=== PATIENT | male | born 1985 | race Caucasian/White ===

== ENCOUNTER 2017-04-18 12:53 | Emergency (ER) | payer OTHER ==
--- NOTE | 2017-04-18 14:23 | RAD ---
INDICATION: Left hip pain after a fall COMPARISON: CT abdomen pelvis dated July 03, 2015 and left hip radiograph dated October 06, 2014 TECHNIQUE: 3 views of the left hip were obtained. FINDINGS: There is bony irregularity overlying the left femoral head and neck which appears to be posterior to the femoral head when viewed in the lateral projection. The visualized bones are otherwise appropriately aligned and well corticated. No definite fracture or dislocation is identified. Partially visualized overlying the expected location of the inferior vena cava is a Cook select IVC filter. IMPRESSION: 1. No definite fracture or dislocation involving the left hip. There is chronic bony formation posterior to the femoral head that is similar in appearance to the October 06, 2014 radiograph. 2. Again seen is what appears to be a Cook select IVC filter. Please confirm continued clinical indication for this IVC filter in a 32-year-old patient. According to the FDA's February 19, 2014 Safety Communication titled, Removing Retrievable Inferior Vena Cava Filters: FDA Safety Communication, removal of IVC filters should be considered once there is no longer a threat of pulmonary embolism. https://www.fda.gov/medicaldevices/safety/alertsandnotices/nvd389449.htm
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
[2017-04-18 15:53] VITALS: BP 131/83
== END 2017-04-18 15:35 | disposition home or self-care (01) ==
LOC: ED 12:53
DX: M25.552 Pain in left hip (principal); W19.XXXA Unspecified fall, initial encounter; Y92.9 Unspecified place or not applicable; Z79.01 Long term (current) use of anticoagulants; Z88.2 Allergy status to sulfonamides
CPT/HCPCS: 99282

== ENCOUNTER 2017-04-22 10:21 | Emergency (ER) | payer OTHER ==
[2017-04-22] MEDS ORDERED: HYDROcodone/ACETAMIN 5-325 MG* 1 TAB PO ONE (11:18)
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
[2017-04-22 11:29] VITALS: BP 152/102
== END 2017-04-22 11:45 | disposition short-term general hospital (02) ==
LOC: UCEAST 10:21
DX: M25.559 Pain in unspecified hip (principal); S30.0XXD Contusion of lower back and pelvis, subsequent encounter; S70.00XD Contusion of unspecified hip, subsequent encounter; I82.401 Acute embolism and thrombosis of unspecified deep veins of right lower extremity; Z79.01 Long term (current) use of anticoagulants
CPT/HCPCS: 99213; G0463

== ENCOUNTER 2017-04-22 12:04 | Inpatient (IN) | payer OTHER ==
[2017-04-22 13:04] LABS: Comments Flag Yes; Hematocrit 33 % (42-52); Hemoglobin 10.8 g/dl (14.0-18.0); Mean Corpuscular HGB Conc 33 g/dl (31-36); Mean Corpuscular Hemoglobin 29 pg (27-31); Mean Corpuscular Volume 87 fL (80-94); Mean Platelet Volume 9 um3 (7.4-10.4); Red Blood Count 3.79 10^6/ul (4.0-5.4); Red Cell Distribution Width 14 % (10.5-15); White Blood Count 13.9 10^3/ul (3.5-10.8)
[2017-04-22 13:05] LABS: Add Diff/Slide Review? Slide Review Added
[2017-04-22 13:20] LABS: Albumin 4.1 g/dL (3.2-5.2); BUN/Creatinine Ratio 19.7 (8-20); Calcium 9.6 mg/dL (8.6-10.3); EGFR African American 179.9 (>60); EGFR Non-African American 139.9 (>60); Globulin 3.1 g/dL (2-4); Total Bilirubin 1.3 mg/dL (0.2-1.0); Total Protein 7.2 g/dL (6.4-8.9)
[2017-04-22] MEDS ORDERED: Morphine INJ* 4 MG/ML 1 ML SYRINGE IV ONE (13:49)
[2017-04-22] MEDS ORDERED: HYDROcodone/ACETAMIN 5-325 MG* 1 TAB PO ONE (14:06)
[2017-04-22] MEDS ORDERED: Acetaminophen TAB* 325 MG PO PRN (14:59)
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
[2017-04-22] MEDS: HYDROcodone/ACETAMIN 5-325 MG* 1 TAB PO PRN ×2 (19:20→21:56)
[2017-04-22] MEDS ORDERED: Metoprolol Tartrate TAB* 25 MG PO ONE (21:35)
[2017-04-22] MEDS: DOXYcycline CAP(*) 100 MG PO SCH (21:57)
[2017-04-22] MEDS: Rivaroxaban TAB(*) 15 MG PO SCH (22:14)
[2017-04-23] MEDS ORDERED: Iohexol 350* (CONTRAST) 500 ML MDV IV ONE (00:02)
[2017-04-23] MEDS: HYDROcodone/ACETAMIN 5-325 MG* 1 TAB PO PRN ×8 (01:00→23:20)
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
[2017-04-23] MEDS: DOXYcycline CAP(*) 100 MG PO SCH ×2 (09:05→20:45)
[2017-04-23] MEDS: Rivaroxaban TAB(*) 15 MG PO SCH ×3 (09:05→20:46)
[2017-04-23 10:55] LABS: Hematocrit 34 % (42-52); Mean Corpuscular HGB Conc 33 g/dl (31-36); Mean Corpuscular Hemoglobin 29 pg (27-31); Mean Corpuscular Volume 88 fL (80-94); Mean Platelet Volume 9 um3 (7.4-10.4); Red Blood Count 3.82 10^6/ul (4.0-5.4); Red Cell Distribution Width 14 % (10.5-15); White Blood Count 16.3 10^3/ul (3.5-10.8)
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
[2017-04-23] MEDS: Magnesium Hydroxide LIQ* 30 ML UDC PO PRN ×2 (15:35→21:55)
[2017-04-24] MEDS: HYDROcodone/ACETAMIN 5-325 MG* 1 TAB PO PRN ×5 (00:37→16:45)
[2017-04-24 07:16] LABS: Albumin 3.6 g/dL (3.2-5.2); BUN/Creatinine Ratio 25.4 (8-20); EGFR African American 189.8 (>60); EGFR Non-African American 147.6 (>60); Globulin 2.5 g/dL (2-4); Potassium 4.1 mmol/L (3.5-5.0); Total Bilirubin 1.3 mg/dL (0.2-1.0); Total Protein 6.1 g/dL (6.4-8.9)
[2017-04-24] MEDS: DOXYcycline CAP(*) 100 MG PO SCH (08:39)
[2017-04-24] MEDS: Rivaroxaban TAB(*) 15 MG PO SCH ×2 (08:40→11:20)
[2017-04-24 09:21] LABS: Urine Bilirubin Negative (Negative); Urine Glucose Negative (Negative); Urine Nitrite Negative (Negative)
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
[2017-04-24 11:44] LABS: Hematocrit 30 % (42-52); Hemoglobin 9.9 g/dl (14.0-18.0); Mean Corpuscular HGB Conc 33 g/dl (31-36); Mean Corpuscular Hemoglobin 29 pg (27-31); Mean Corpuscular Volume 87 fL (80-94); Mean Platelet Volume 8 um3 (7.4-10.4); Red Blood Count 3.47 10^6/ul (4.0-5.4); Red Cell Distribution Width 14 % (10.5-15); White Blood Count 11.3 10^3/ul (3.5-10.8)
[2017-04-24 17:36] VITALS: BP 159/85
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
--- NOTE | 2017-04-26 19:45 | RAD ---
INDICATION: Tachycardia and chest pain COMPARISON: CT of the chest October 19, 2016 TECHNIQUE: Varnish Thinner imaging only was acquired. FINDINGS: The planned pulmonary embolism protocol CT of the chest was canceled upon the patient's request. Varnish Thinner imaging only was acquired. This shows the lungs to be grossly clear and the AP view. IMPRESSION: The lungs are grossly clear on the AP view on the chief strategy officer image only.
== END 2017-04-24 17:30 | disposition home or self-care (01) | DRG 384 ==
LOC: ED 12:04 → MED 14:59 → OBSVTOIN 04-23 12:31
PROVIDERS: ADMIT Internal Medicine; ATTEND Internal Medicine
DX: S70.12XA Contusion of left thigh, initial encounter (principal); I82.411 Acute embolism and thrombosis of right femoral vein; A69.20 Lyme disease, unspecified; W10.9XXA Fall (on) (from) unspecified stairs and steps, initial encounter; D72.829 Elevated white blood cell count, unspecified; K59.00 Constipation, unspecified; Y92.009 Unspecified place in unspecified non-institutional (private) residence as the place of occurrence of the external cause; Z87.820 Personal history of traumatic brain injury; Z79.01 Long term (current) use of anticoagulants; Z79.899 Other long term (current) drug therapy; Z88.2 Allergy status to sulfonamides; Z82.49 Family history of ischemic heart disease and other diseases of the circulatory system; Z83.3 Family history of diabetes mellitus
CPT/HCPCS: 36415; 71275; 80053; 81003; 82272; 83605; 85025; 93005; A9270-GY; G0378; G8978-GP-CK; G8979-GP-CJ; J2270; Q9967

== ENCOUNTER 2017-07-08 11:06 | Emergency (ER) | payer OTHER ==
[2017-07-08 11:33] VITALS: BP 155/94
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
== END 2017-07-08 12:51 | disposition home or self-care (01) ==
LOC: UCEAST 11:06
DX: S00.511A Abrasion of lip, initial encounter (principal); W01.0XXA Fall on same level from slipping, tripping and stumbling without subsequent striking against object, initial encounter; Y93.01 Activity, walking, marching and hiking; Y92.480 Sidewalk as the place of occurrence of the external cause; Z87.820 Personal history of traumatic brain injury; Z79.01 Long term (current) use of anticoagulants; Z88.2 Allergy status to sulfonamides; F12.90 Cannabis use, unspecified, uncomplicated; Z72.0 Tobacco use
CPT/HCPCS: 70450; 72125; 99212; G0463

== ENCOUNTER 2017-11-11 22:21 | Emergency (ER) | payer OTHER ==
[2017-11-11] MEDS ORDERED: Ciprofloxacin TAB* 500 MG PO ONE (22:54)
--- OUTSIDE RECORDS SUMMARY | 2017-11-11 23:17 | XMS REPORT ---
:1985 External Reference #:[id number] Author Organization [facility] Address [address] [address] Phone [phone] Care Team Providers Name Role Phone Garcia Palomares III, MD Care Team Information Typists Supervisor Unavailable Garcia Palomares III, MD Primary Care Physician Unavailable Payers Type Date Identification Numbers Payment Provider Subscriber Commercial Effective: Policy Number: Damon Stern Luther 2013 [id number] Group Name: [id number] [address] PayID: [id number] [place] [address] Commercial Expires: 2013 Policy Number: [employer] Jayesh J Luther [id number] [facility] PayID: [id number] [address] [address] [place] [address] Problems Date Description Provider Status Onset: 03/20/2012 Traumatic brain injury Garcia Palomares M.D. Active Onset: 09/20/2013 Abnormal gait Garcia Palomares M.D. Active Family History Date Family Member(s) Problem(s) Comments General Multiple Sclerosis (MS) Father due to (+) MS () - age 57 Social History Type Date Description Comments Marital Status Single Lives With Family Occupation Student Cigarette Use Patient is a current cigarette smoker, smokes every day Cigars Patient is a current cigar smoker, smokes every day Pipe Patient is a current pipe smoker, smokes every day Smokeless Tobacco Never Used Smokeless Tobacco ETOH Use Occasionally consumes alcohol Recreational Drug Use occ marijuana Smoking Patient is a former smoker quit May 2016; about 1/2 ppd then, max 1ppd. Began age 17 Exercise Type/Frequency Exercises sporadically walks on occ Allergies, Adverse Reactions, Alerts Date Description Reaction Status Severity Comments 03/20/2012 Sulfa not sure - was an active Medications Medication Date Status Form Strength Qnty SIG Indications Ordering Provider Xarelto 05/24 Active Tablets 20mg 90tab 1 by mouth I82.401 Garcia Noriega /2016 s every day Wilver Palomares Ciprofloxacin 04/26 Hx Tablets 250mg 14tab one by noalonso Noriega HCL s twice daily for Marielle, - 7 days M.DKim 07/07 Hydrocodone-Ac 04/22 Hx Tablets 5-325mg 40tab 1-2 tabs up to Garcia Noriega etaminophen s 4 itmes a day Marielle - as needd Danish.Pedro 07/13 Xarelto 04/20 Hx Tablets 15mg 42tab 1 by mouth I82.401 Garcia Noriega s twice a day Macario Palomares M.DKim 05/24 Tramadol HCL 04/20 Hx Tablets 50mg 40tab 1-2 tablets M25.552 Garcia Noriega s every 6 hours Marielle, - as needed M.Pedro 07/14 Lovenox 04/14 Hx Solution 100mg/ml 30ml SQ bid Marilee Macario Sherwood M.D. 04/22 Doxycycline 04/07 Hx Capsules 100mg 28cap 1 by mouth L03.115 Garcia Noriega Hyclate s twice a day Macario Palomares M.D. 04/20 No Active 07/30 Hx Unknown Medications /2015 - 04/07 No Active 12/04 Hx Unknown Medications /2012 - 06/20 Lovenox Hx Solution 100mg/ml 60uni On Hold. 1 Garcia E. /0000 ts subcutaneously Marielle - q12h as M.DKim 12/04 Benefiber Hx Powder Unknown /0000 Clindamycin Hx Capsules 300mg 1 tabs by mouth Unknown HCL /0000 3 times a day - 10/24 Immunizations CPT Code Status Date Vaccine Lot # 60010 Given 05/31/2014 Tdap - Tetanus/Diptheria/Acellular Pertussis [id number] Given 01/29/2014 Meningococcal Conjugate Vaccine 11990 Given 01/29/2014 Meningococcal Conjugate Vaccine [id number] Given Unknown Tetanus And Diptheria (Td) For Adult Use Preservative Free [id number] Refused 07/07/2012 Fluzone Vaccine Vital Signs Date Vital Result Comment 11/01/2017 Height 66.5 inches 5'6.50" Weight 215.00 lb Heart Rate 68 /min BP Systolic 132 mmHg BP Diastolic 80 mmHg Respiratory Rate 18 /min Body Temperature 96.6 F BMI (Body Mass Index) 34.2 kg/m2 10/25/2017 Weight 215.00 lb Heart Rate 75 /min BP Systolic Sitting 132 mmHg BP Diastolic Sitting 82 mmHg Body Temperature 97.3 F O2 % BldC Oximetry 99 % 09/09/2017 Weight 191.25 lb Heart Rate 52 /min BP Systolic 142 mmHg BP Diastolic 82 mmHg O2 % BldC Oximetry 93 % 07/15/2017 Height 66.5 inches 5'6.50" Weight 199.25 lb Heart Rate 74 /min BP Systolic Sitting 154 mmHg BP Diastolic Sitting 90 mmHg Body Temperature 96.4 F O2 % BldC Oximetry 98 % BMI (Body Mass Index) 31.7 kg/m2 05/04/2017 Weight 203.00 lb Heart Rate 77 /min BP Systolic 152 mmHg BP Diastolic 80 mmHg Body Temperature 97.0 F O2 % BldC Oximetry 99 % 04/20/2017 Heart Rate 86 /min BP Systolic 136 mmHg BP Diastolic 78 mmHg Body Temperature 97.9 F O2 % BldC Oximetry 98 % 04/07/2017 Weight 211.00 lb Heart Rate 74 /min BP Systolic 128 mmHg BP Diastolic 62 mmHg Body Temperature 98.5 F O2 % BldC Oximetry 99 % 03/01/2017 Height 66.5 inches 5'6.50" Weight 211.50 lb Heart Rate 63 /min BP Systolic 130 mmHg BP Diastolic 80 mmHg Body Temperature 95.9 F O2 % BldC Oximetry 99 % BMI (Body Mass Index) 33.6 kg/m2 02/04/2017 Height 66.5 inches 5'6.50" Weight 210.00 lb Heart Rate 72 /min BP Systolic 126 mmHg BP Diastolic 84 mmHg Respiratory Rate 16 /min Body Temperature 97.9 F BMI (Body Mass Index) 33.4 kg/m2 11/15/2016 Height 66.5 inches 5'6.50" Weight 206.50 lb Heart Rate 88 /min BP Systolic 126 mmHg BP Diastolic 70 mmHg Body Temperature 96.5 F O2 % BldC Oximetry 98 % BMI (Body Mass Index) 32.8 kg/m2 10/26/2016 Height 66.5 inches 5'6.50" Weight 200.00 lb Heart Rate 68 /min BP Systolic 136 mmHg BP Diastolic 80 mmHg Respiratory Rate 18 /min Body Temperature 96.5 F BMI (Body Mass Index) 31.8 kg/m2 10/05/2016 Weight 205.00 lb Heart Rate 85 /min BP Systolic Sitting 154 mmHg BP Diastolic Sitting 88 mmHg Body Temperature 96.5 F O2 % BldC Oximetry 98 % 07/30/2016 Height 66.5 inches 5'6.50" Weight 190.00 lb Heart Rate 72 /min BP Systolic 138 mmHg BP Diastolic 82 mmHg Respiratory Rate 16 /min Body Temperature 99.1 F BMI (Body Mass Index) 30.2 kg/m2 10/02/2015 Weight 188.00 lb Heart Rate 85 /min BP Systolic Sitting 134 mmHg BP Diastolic Sitting 80 mmHg Body Temperature 97.8 F 06/20/2015 Weight 190.00 lb Heart Rate 80 /min BP Systolic Sitting 140 mmHg BP Diastolic Sitting 84 mmHg Body Temperature 98.4 F O2 % BldC Oximetry 98 % 05/21/2015 Weight 193.25 lb Heart Rate 62 /min BP Systolic Sitting 124 mmHg BP Diastolic Sitting 72 mmHg Body Temperature 96.4 F O2 % BldC Oximetry 95 % 01/15/2015 Weight 182.50 lb Heart Rate 55 /min BP Systolic Sitting 130 mmHg BP Diastolic Sitting 80 mmHg Body Temperature 97.9 F O2 % BldC Oximetry 98 % 01/14/2015 Weight 200.00 lb Heart Rate 78 /min BP Systolic Sitting 130 mmHg BP Diastolic Sitting 88 mmHg 10/08/2014 Weight 193.00 lb Heart Rate 80 /min BP Systolic Sitting 130 mmHg BP Diastolic Sitting 70 mmHg Body Temperature 97.5 F 05/31/2014 Weight 196.00 lb BP Systolic Sitting 130 mmHg BP Diastolic Sitting 86 mmHg Body Temperature 97.0 F 09/20/2013 Height 66 inches 5'6" Weight 229.50 lb Heart Rate 78 /min BP Systolic 134 mmHg BP Diastolic 82 mmHg BMI (Body Mass Index) 37.0 kg/m2 06/06/2013 Weight 218.75 lb Heart Rate 96 /min BP Systolic Sitting 144 mmHg BP Diastolic Sitting 82 mmHg 12/04/2012 Height 66.5 inches 5'6.50" Weight 226.00 lb Heart Rate 80 /min BP Systolic Sitting 130 mmHg BP Diastolic Sitting 80 mmHg BMI (Body Mass Index) 35.9 kg/m2 10/24/2012 Height 66.5 inches 5'6.50" Weight 229.00 lb Heart Rate 80 /min BP Systolic Sitting 120 mmHg BP Diastolic Sitting 64 mmHg BMI (Body Mass Index) 36.4 kg/m2 08/03/2012 Height 66.25 inches 5'6.25" Weight 234.00 lb Heart Rate 96 /min BP Systolic Sitting 136 mmHg BP Diastolic Sitting 84 mmHg BMI (Body Mass Index) 37.5 kg/m2 07/20/2012 Height 66.5 inches 5'6.50" Weight 230.00 lb Heart Rate 108 /min BP Systolic Sitting 138 mmHg BP Diastolic Sitting 86 mmHg BMI (Body Mass Index) 36.6 kg/m2 07/07/2012 Height 66.5 inches 5'6.50" Weight 230.00 lb Heart Rate 72 /min BP Systolic Sitting 158 mmHg BP Diastolic Sitting 98 mmHg BMI (Body Mass Index) 36.6 kg/m2 03/20/2012 Height 66.5 inches 5'6.50" Weight 236.50 lb Heart Rate 84 /min BP Systolic Sitting 128 mmHg BP Diastolic Sitting 80 mmHg BMI (Body Mass Index) 37.6 kg/m2 Results Test Date Test Result H/L Range Note CBC Auto Diff 10/26/2017 White Blood Count 7.1 10^3/uL 3.5-10.8 Red Blood Count 4.78 10^6/uL 4.0-5.4 Hemoglobin 13.6 g/dL Low 14.0-18.0 Hematocrit 41 % Low 42-52 Mean Corpuscular Volume 85 fL 80-94 Mean Corpuscular Hemoglobin 28 pg 27-31 Mean Corpuscular HGB Conc 34 g/dL 31-36 Red Cell Distribution Width 16 % High 10.5-15 Platelet Count 238 10^3/uL 150-450 Mean Platelet Volume 8 um3 7.4-10.4 Abs Neutrophils 5.3 10^3/uL 1.5-7.7 Abs Lymphocytes 0.8 10^3/uL Low 1.0-4.8 Abs Monocytes 0.7 10^3/uL 0-0.8 Abs Eosinophils 0.1 10^3/uL 0-0.6 Abs Basophils 0.1 10^3/uL 0-0.2 Abs Nucleated RBC 0 10^3/uL Granulocyte % 75.7 % 38-83 Lymphocyte % 11.8 % Low 25-47 Monocyte % 10.3 % High 1-9 Eosinophil % 1.4 % 0-6 Basophil % 0.8 % 0-2 Nucleated Red Blood Cells % 0 CBC Auto Diff 05/04/2017 White Blood Count 8.0 10^3/uL 3.5-10.8 Red Blood Count 3.83 10^6/uL Low 4.0-5.4 Hemoglobin 11.1 g/dL Low 14.0-18.0 Hematocrit 34 % Low 42-52 Mean Corpuscular Volume 89 fL 80-94 Mean Corpuscular Hemoglobin 29 pg 27-31 Mean Corpuscular HGB Conc 33 g/dL 31-36 Red Cell Distribution Width 15 % 10.5-15 Platelet Count 760 10^3/uL High 150-450 Mean Platelet Volume 8 um3 7.4-10.4 Abs Neutrophils 5.3 10^3/uL 1.5-7.7 Abs Lymphocytes 1.8 10^3/uL 1.0-4.8 Abs Monocytes 0.7 10^3/uL 0-0.8 Abs Eosinophils 0.2 10^3/uL 0-0.6 Abs Basophils 0.1 10^3/uL 0-0.2 Abs Nucleated RBC 0 10^3/uL Granulocyte % 66.7 % 38-83 Lymphocyte % 22.0 % Low 25-47 Monocyte % 8.5 % 1-9 Eosinophil % 1.9 % 0-6 Basophil % 0.9 % 0-2 Nucleated Red Blood Cells % 0 Liver Function Panel 05/04/2017 Total Protein 7.1 g/dL 6.4-8.9 Albumin 4.1 g/dL 3.2-5.2 Globulin 3.0 g/dL 2-4 Albumin/Globulin Ratio 1.4 1-3 Total Bilirubin 1.40 mg/dL High 0.2-1.0 Direct Bilirubin 0.20 mg/dL High 0.03-0.18 Indirect Bilirubin 1.2 mg/dL High 0.3-1.0 Alkaline Phosphatase 79 U/L 34-104 Alt 34 U/L 7-52 Ast 22 U/L 13-39 Urine Culture And Sensitivities 04/27/2017 Urine Culture SEE RESULT BELOW 1, 2 Urinalysis Profile 04/27/2017 Urine Color Yellow 1 Urine Appearance Clear 1 Urine Specific [place] 1.011 1.010-1.030 1 Urine pH 6.0 5-9 1 Urine Urobilinogen Negative Negative 1 Urine Ketones Negative Negative 1 Urine Protein Negative Negative 1 Urine Leukocytes Negative Negative 1 Urine Blood Negative Negative 1 Urine Nitrite Negative Negative 1 Urine Bilirubin Negative Negative 1 Urine Glucose Negative Negative 1 CBC Auto Diff 04/22/2017 White Blood Count 13.9 10^3/uL High 3.5-10.8 Red Blood Count 3.79 10^6/uL Low 4.0-5.4 Hemoglobin 10.8 g/dL Low 14.0-18.0 Hematocrit 33 % Low 42-52 Mean Corpuscular Volume 87 fL 80-94 Mean Corpuscular Hemoglobin 29 pg 27-31 Mean Corpuscular HGB Conc 33 g/dL 31-36 Red Cell Distribution Width 14 % 10.5-15 Platelet Count 252 10^3/uL 150-450 Mean Platelet Volume 9 um3 7.4-10.4 Abs Neutrophils 10.1 10^3/uL High 1.5-7.7 Abs Lymphocytes 1.9 10^3/uL 1.0-4.8 Abs Monocytes 1.7 10^3/uL High 0-0.8 Abs Eosinophils 0.1 10^3/uL 0-0.6 Abs Basophils 0.1 10^3/uL 0-0.2 Abs Nucleated RBC 0 10^3/uL Granulocyte % 73.0 % 38-83 Lymphocyte % 13.6 % Low 25-47 Monocyte % 12.2 % High 1-9 Eosinophil % 0.6 % 0-6 Basophil % 0.6 % 0-2 Nucleated Red Blood Cells % 0 Laboratory test finding 04/22/2017 Lactic Acid 0.7 mmol/L 0.5-2.0 3 Comp Metabolic Panel 04/22/2017 Sodium 134 mmol/L 133-145 Potassium 4.0 mmol/L 3.5-5.0 Chloride 100 mmol/L Low 101-111 Co2 Carbon Dioxide 27 mmol/L 22-32 Anion Gap 7 mmol/L 2-11 Glucose 95 mg/dL 70-100 Blood Urea Nitrogen 13 mg/dL 6-24 Creatinine 0.66 mg/dL Low 0.67-1.17 BUN/Creatinine Ratio 19.7 8-20 Calcium 9.6 mg/dL 8.6-10.3 Total Protein 7.2 g/dL 6.4-8.9 Albumin 4.1 g/dL 3.2-5.2 Globulin 3.1 g/dL 2-4 Albumin/Globulin Ratio 1.3 1-3 Total Bilirubin 1.30 mg/dL High 0.2-1.0 Alkaline Phosphatase 61 U/L 34-104 Alt 115 U/L High 7-52 Ast 142 U/L High 13-39 Egfr Non- 139.9 >60 Egfr 179.9 >60 4 CBC Auto Diff 04/14/2017 White Blood Count 5.9 10^3/uL 3.5-10.8 Red Blood Count 4.65 10^6/uL 4.0-5.4 Hemoglobin 13.4 g/dL Low 14.0-18.0 Hematocrit 42 % 42-52 Mean Corpuscular Volume 90 fL 80-94 Mean Corpuscular Hemoglobin 29 pg 27-31 Mean Corpuscular HGB Conc 32 g/dL 31-36 Red Cell Distribution Width 14 % 10.5-15 Platelet Count 224 10^3/uL 150-450 Mean Platelet Volume 9 um3 7.4-10.4 Abs Neutrophils 3.2 10^3/uL 1.5-7.7 Abs Lymphocytes 2.0 10^3/uL 1.0-4.8 Abs Monocytes 0.6 10^3/uL 0-0.8 Abs Eosinophils 0.1 10^3/uL 0-0.6 Abs Basophils 0.1 10^3/uL 0-0.2 Abs Nucleated RBC 0.01 10^3/uL Granulocyte % 53.7 % 38-83 Lymphocyte % 33.7 % 25-47 Monocyte % 10.2 % High 1-9 Eosinophil % 1.5 % 0-6 Basophil % 0.9 % 0-2 Nucleated Red Blood Cells % 0.2 Laboratory test finding 04/14/2017 Erythrocyte Sed Rate 7 mm/Hr 0-14 Lyme Disease Serology Positive Negative 5 C Reactive Protein 1.54 mg/L < 5.00 6 Lyme Western Blot 04/14/2017 Lyme Disease IgG Ab WB Negative Negative Lyme Disease IgG Bands Present No bands detecte <SEE NOTE> kDa 7 Lyme Disease IgM Ab WB Negative Negative Lyme Disease IgM Bands Present No bands detecte <SEE NOTE> kDa 8 Lyme Disease Interpretation See Comment 9 Laboratory test finding 10/27/2015 Point of Care Glucose 89 mg/dL 74-106 10 Laboratory test finding 08/01/2015 Point of Care Glucose 72 mg/dL Low 74- 106 11 CBC Auto Diff 10/15/2014 White Blood Count 6.9 10^3/uL 4.8-10.8 12 Red Blood Count 3.81 10^6/uL Low 4.0-5.4 12 Hemoglobin 10.9 g/dL Low 14.0-18.0 12 Hematocrit 34 % Low 42-52 12 Mean Corpuscular Volume 88 fL 80-94 12 Mean Corpuscular Hemoglobin 29 pg 27-31 12 Mean Corpuscular HGB Conc 33 g/dL 31-36 12 Red Cell Distribution Width 16 % High 10.5-15 12 Platelet Count 310 10^3/uL 150-450 12 Mean Platelet Volume 9 um3 7.4-10.4 12 Abs Neutrophils 4.7 10^3/uL 1.5-7.7 12 Abs Lymphocytes 1.4 10^3/uL 1.0-4.8 12 Abs Monocytes 0.6 10^3/uL 0-0.8 12 Abs Eosinophils 0.1 10^3/uL 0-0.6 12 Abs Basophils 0.1 10^3/uL 0-0.2 12 Abs Nucleated RBC 0 10^3/uL 12 Granulocyte % 68.1 % 38-83 12 Lymphocyte % 20.7 % Low 25-47 12 Monocyte % 8.3 % 1-9 12 Eosinophil % 2.1 % 0-6 12 Basophil % 0.8 % 0-2 12 Nucleated Red Blood Cells % 0 12 Lipid Profile (Trig/Chol/HDL) 10/15/2014 Triglycerides 70 mg/dL 12, 13 Cholesterol 144 mg/dL 12, 14 HDL Cholesterol 42.7 mg/dL 12, 15 LDL Cholesterol 87 mg/dL 12, 16 Comp Metabolic Panel 10/06/2014 Sodium 140 mmol/L 133-145 Potassium 4.2 mmol/L 3.5-5.0 Chloride 107 mmol/L 101-111 Co2 Carbon Dioxide 29 mmol/L 22-32 Anion Gap 4 mmol/L 2-11 Glucose 82 mg/dL 70-100 Blood Urea Nitrogen 19 mg/dL 6-24 Creatinine 0.75 mg/dL 0.67-1.17 BUN/Creatinine Ratio 25.3 High 8-20 Calcium 9.5 mg/dL 8.6-10.3 Total Protein 7.0 g/dL 6.4-8.9 Albumin 4.1 g/dL 3.2-5.2 Globulin 2.9 g/dL 2-4 Albumin/Globulin Ratio 1.4 1-3 Total Bilirubin 1.00 mg/dL 0.2-1.0 Alkaline Phosphatase 47 U/L 34-104 Alt 10 U/L 7-52 Ast 15 U/L 13-39 Egfr Non- 123.1 >60 Egfr 158.3 >60 17 Laboratory test finding 10/06/2014 Activated Partial 37.2 seconds High 24.0-36.1 Thrombo Time Inr/Protime 10/06/2014 Inr 0.97 0.85-1.06 CBC Auto Diff 10/06/2014 White Blood Count 8.2 10^3/uL 4.8-10.8 Red Blood Count 3.76 10^6/uL Low 4.0-5.4 Hemoglobin 10.8 g/dL Low 14.0-18.0 Hematocrit 33 % Low 42-52 Mean Corpuscular Volume 87 fL 80-94 Mean Corpuscular Hemoglobin 29 pg 27-31 Mean Corpuscular HGB Conc 33 g/dL 31-36 Red Cell Distribution Width 15 % 10.5-15 Platelet Count 357 10^3/uL 150-450 Mean Platelet Volume 8 um3 7.4-10.4 Abs Neutrophils 6.3 10^3/uL 1.5-7.7 Abs Lymphocytes 1.3 10^3/uL 1.0-4.8 Abs Monocytes 0.5 10^3/uL 0-0.8 Abs Eosinophils 0.1 10^3/uL 0-0.6 Abs Basophils 0.1 10^3/uL 0-0.2 Abs Nucleated RBC 0 10^3/uL Granulocyte % 76.5 % 38-83 Lymphocyte % 15.7 % Low 25-47 Monocyte % 6.2 % 1-9 Eosinophil % 1.0 % 0-6 Basophil % 0.6 % 0-2 Nucleated Red Blood Cells % 0 Laboratory test 10/20/2012 D Dimer Quantitative < 200 ng/mL Less Than 18 finding 230 International 07/14/2012 Inr 0.92 0.88-1.13 19 Normalized Ratio Protime 10.9 SEC 10.3-13.5 20 Basic Metabolic Panel 07/14/2012 Sodium 141 mmol/L 135-145 Potassium 5.0 mmol/L 3.5-5.0 Chloride 108 mmol/L 101-111 Co2 (Carbon Dioxide) 24.0 mmol/L 22-32 Anion Gap 9.0 mmol/L 2-11 21 Glucose 94 mg/dL 70-100 BUN 14 mg/dL 6-24 Creatinine 0.8 mg/dL 0.50-1.40 One Over Creatinine 1.25 BUN/Creatinine Ratio 17.5 8-20 Calcium 9.5 mg/dL 8.1-9.9 eGFR Non- 116.0 > 60 eGFR 149.1 > 60 22 1 [id number] 2 SEE RESULT BELOW Name: JAYESH LOVE : [address]: Marilee Sherwood MD Acct: [id number] Unit: [id number] AGE: 32 Location: [facility] Re04/27/17 SEX: M Status: REG REF SPEC: [id number] HUNG: 04/27/17-[address]: Marilee Sherwood MD REQ: [id number] RECD: 07/ STATUS: COMP OTHR DR: Garcia Palomares III, MD _ SOURCE: URINE [facility]: ORDERED: Urine Culture COMMENTS: [id number] Urine Source: Random Procedure Result Reported Site Urine Culture Final 04/28/17- 1331 ML No Growth (<1,000 CFU/mL) * ML - MAIN LAB ([facility]) . END OF REPORT * ML=Testing performed at Main Lab DEPARTMENT OF PATHOLOGY, [address] [place] [address] Eric Matthews M.D. Director [facility] # [id number] 3 [facility] Severe Sepsis and Septic Shock Management Bundle Measure requires all lactic acids initially measuring >2.0 mmol/L be repeated. 4 Because ethnic data is not always readily available, this report includes an eGFR for both -Americans and non- Americans. The National Kidney Disease Education Program (NKDEP) does not endorse the use of the MDRD equation for patients that are not between the ages of 18 and 70, are , have extremes of body size, muscle mass, or nutritional status, or are non- or non-. According to the National Kidney Foundation, irrespective of diagnosis, the stage of the disease is based on the level of kidney function: Stage Description GFR(mL/min/1.73 m(2)) 1 Kidney damage with normal or decreased GFR 90 2 Kidney damage with mild decrease in GFR 60-89 3 Moderate decrease in GFR 30-59 4 Severe decrease in GFR 15-29 5 Kidney failure <15 (or dialysis) 5 Not diagnostic. Supplemental testing ordered by reflex. Test Performed by: [place] [address] 6 Acute inflammation: >10.00 7 No bands detected 8 No bands detected 9 Specific serologic response to B. burgdorferi infection is not detected, but cannot rule out early infection during which low or undetectable antibody levels to B. burgdorferi may be present. If clinically indicated, a new serum specimen should be submitted in 7-14 days. ADDITIONAL INFORMATION CDC criteria require >=5 bands for IgG or >=2 bands for IgM for the Immunoblot to be considered positive. Bands (e.g.,p41) may be detected in patients without Lyme disease, and patterns not meeting the CDC criteria should be interpreted with caution. Immunoblot should be ordered only on specimens that are positive or equivocal by a FDA-licensed Lyme disease antibody screening test (e.g., EIA). Test Performed by: [address] [address] 10 Tavern Operator: [id number] ZAVALA 11 Tavern Operator: [id number] ZAVALA 12 PT IS FASTING 13 Desirable <150 Borderline high 150-199 High 200-499 Very High >500 14 Desirable <200 Borderline high 200-239 High >239 15 Low <40 Desirable: 40-60 High: >60 16 Desirable <100 Near Optimal 100-129 Borderline high 130-159 High 160-189 Very High >189 17 Because ethnic data is not always readily available, this report includes an eGFR for both -Americans and non- Americans. The National Kidney Disease Education Program (NKDEP) does not endorse the use of the MDRD equation for patients that are not between the ages of 18 and 70, are , have extremes of body size, muscle mass, or nutritional status, or are non- or non-. According to the National Kidney Foundation, irrespective of diagnosis, the stage of the disease is based on the level of kidney function: Stage Description GFR(mL/min/1.73 m(2)) 1 Kidney damage with normal or decreased GFR 90 2 Kidney damage with mild decrease in GFR 60-89 3 Moderate decrease in GFR 30-59 4 Severe decrease in GFR 15-29 5 Kidney failure <15 (or dialysis) 18 Please note: The following may produce a false positive D Dimer test: - Rheumatoid factor greater than 60 IU/ml - Plasma hemoglobin greater than 0.05 gm/dl - Bilirubin greater than 50 mg/dl - Lipids greater than 1000 mg/dl - FDP greater than 20 ug/ml 19 Recommended INR for Patients on Oral Anticoagulants Prophylaxis 2.0 - 3.0 Treatment of thrombosis 2.0 - 3.0 Prevention of embolism 2.0 - 3.0 Prevention of embolism from prosthetic heart valves 2.5 - 3.5 20 DIAGNOSIS,TREATMENT,AND THERAPY MUST BE BASED ON THE INR VALUE ALONE. 21 Anion gap measurement may be of limited value in the presence of any alkalosis, especially in a combined acid base disorder. . 22 Because ethnic data is not always readily available, this report includes an eGFR for both -Americans and non- Americans. The National Kidney Disease Education Program (NKDEP) does not endorse the use of the MDRD equation for patients that are not between the ages of 18 and 70, are , have extremes of body size, muscle mass, or nutritional status, or are non- or non-. According to the National Kidney Foundation, irrespective of diagnosis, the stage of the disease is based on the level of kidney function: Stage Description GFR(mL/min/1.73 m(2)) 1 Kidney damage with normal or decreased GFR 90 2 Kidney damage with mild decrease in GFR 60-89 3 Moderate decrease in GFR 30-59 4 Severe decrease in GFR 15-29 5 Kidney failure <15 (or dialysis) Procedures Date CPT Code Description Status 04/22/2017 19135 EKG, Interpretation Only Completed 01/14/2015 04584 Remove Guy Marquez Completed Encounters Type Date Location Provider CPT E/M Dx Office Visit 10/25/2017 [facility] Internal Garcia Palomares, 27815 K62.5 11:40a Alina Driver M.D. Office Visit 09/09/2017 [facility] Internal Garcia Palomares, 28975 M79.671 10:20a Alina Taylor M.D. Office Visit 07/15/2017 [facility] Internal Garcia Palomares, 15958 S01.511D 10:40a Alina Driver M.D. Office Visit 05/04/2017 [facility] Internal Garcia Palomares, 78017 M25.552 10:00a Alina Driver M.D. I82.401 A69.20 R94.5 Office Visit 04/24/2017 9:44a [facility] Shaina Gomez, 03760 T14.8 Assoc, [facility] I82.401 A69.20 Office Visit 04/23/2017 9:43a [facility] Shaina Gomez, 31304 T14.8 Assoc, [facility] I82.401 A69.20 Office Visit 04/22/2017 9:43a [facility] Shaina Gomez, 55513 T14.8 Assoc, [facility] I82.401 A69.20 Office Visit 04/20/2017 10:00a [facility] Internal Medicine Garcia Palomares, 26183 I82.401 - Neisha Pettit M25.552 Office Visit 04/07/2017 11:40a [facility] Internal Medicine Garcia Palomares, 03355 L03.115 - Neisha Pettit R60.0 Office Visit 03/01/2017 1:40p [facility] Internal Medicine Garcia Palomares, 53444 M54.9 - Neisha Pettit Office Visit 02/04/2017 1:15p [facility], 78969 K43.2 [facility] Office Visit 11/15/2016 3:40p [facility] Internal Medicine Garcia Palomares, 63061 Z87.820 - Neisha Pettit R26.89 Office Visit 10/26/2016 10:00a [facility], 17236 R91.8 Blanca Pettit Office Visit 10/05/2016 9:40a [facility] Internal Medicine - Garcia Palomares, 30761 J06.9 Neisha Pettit Office Visit 07/30/2016 4:00p [facility], 20842 K43.2 [facility] Office Visit 10/02/2015 1:20p [facility] Internal Medicine - Garcia Palomares, 42282 R91.8 Brandon Pettit Z87.820 Office Visit 06/20/2015 3:00p [facility] Internal Medicine Garcia Palomares, 48175 781.2 - Brandon Pettit V15.52 719.47 553.20 Office Visit 05/21/2015 2:00p [facility] Internal Medicine Garcia Palomares, 17010 553.20 - Brandon Pettit Office Visit 01/15/2015 2:40p [facility] Internal Medicine Garcia Palomares, 22053 V15.52 - Brandon Pettit 781.99 Office Visit 10/08/2014 4:00p [facility] Internal Medicine Garcia Palomares, 09139 924.00 - Brandon Pettit 285.9 V77.91 Office Visit 05/31/2014 11:40a [facility] Internal Medicine Garcia Palomares, 69725 781.2 - Brandon Pettit V06.1 Office Visit 09/20/2013 1:40p [facility] Internal Medicine Garcia Palomares, 16816 V70.0 - Brandon Pettit 781.2 V77.91 V77.1 Office Visit 06/06/2013 3:20p [facility] - Garcia Palomares, 97779 813.90 Brandon Pettit Office Visit 12/04/2012 1:40p [facility] - Garcia Palomares, 43017 V58.32 Brandon Pettit Office Visit 10/24/2012 9:40a [facility] - Garcia Palomares, 34917 453.42 Brandon Pettit Office Visit 08/03/2012 1:40p [facility] Garcia Palomares, 69640 922.31 Brandon Pettit Office Visit 07/31/2012 10:36a [facility], Candelario Devine M.D. 17868 568.81 Hospitalists 453.9 Office Visit 07/30/2012 10:35a [facility], Candelario Devine M.D. 55494 453.9 Hospitalists 568.81 Office Visit 07/20/2012 1:20p [facility] Garcia Palomares, 01684 453.42 - Brandon Pettit Office Visit 07/07/2012 4:00p [facility] Doris Wilde, 44853 719.46 - Brandon N.PKim V77.1 V77.91 278.00 Office Visit 03/20/2012 3:00p [facility] Garcia Palomares, 87980 V70.0 - Brandon Pettit V15.52 Plan of Care Future Appointment(s):02/01/2018 1:30 pm - Andi Peoples MD at [facility]11/01/2017 - Marlo Camacho M.D.R91.1 Solitary pulmonary noduleFollow up:As needed
--- OUTSIDE RECORDS SUMMARY | 2017-11-11 23:18 | XMS REPORT ---
:1985 External Reference #:[id number] Author Organization [facility] Address [address] [address] Phone [phone] Care Team Providers Name Role Phone Garcia Palomares III, MD Care Team Information Audio/Visual Manager Unavailable Garcia Palomares III, MD Primary Care Physician Unavailable Payers Type Date Identification Numbers Payment Provider Subscriber Commercial Effective: Policy Number: Damon Stern Lorida 2013 [id number] Group Name: [id number] [address] PayID: [id number] [place] [address] Commercial Expires: 2013 Policy Number: Total Care/De Souza MNG Jayesh J Lorida [id number] [facility] PayID: [id number] [address] [address] [place] [address] Problems Date Description Provider Status Onset: 03/20/2012 [...] Noriega s twice a day Macario Palomares M.DiKm 05/24 Tramadol HCL 04/20 Hx Tablets 50mg [...] CPT Code Status Date Vaccine Lot # 12521 Given 05/31/2014 Tdap - Tetanus/Diptheria/Acellular Pertussis [id number] 08275 Given 01/29/2014 Meningococcal Conjugate Vaccine 04754 Given 01/29/2014 Meningococcal Conjugate Vaccine [id number] 88765 Given Unknown Tetanus And Diptheria (Td) For Adult Use Preservative Free [id number] Refused 07/07/2012 Fluzone Vaccine Vital Signs Date Vital Result Comment 10/25/2017 Weight 215.00 lb Heart Rate 75 [...] Result H/L Range Note CBC Auto Diff 05/04/2017 White Blood Count [...] 1 Urine Appearance Clear 1 Urine Specific Pinola 1.011 1.010-1.030 1 Urine pH 6.0 5-9 [...] Dimer Quantitative < 200 ng/mL Less Than 230 18 finding Basic Metabolic 07/14/2012 Sodium 141 mmol/L 135-145 Panel Potassium 5.0 mmol/L 3.5-5.0 Chloride 108 mmol/L 101-111 Co2 (Carbon Dioxide) 24.0 mmol/L 22-32 Anion Gap 9.0 mmol/L 2-11 19 Glucose 94 mg/dL 70-100 BUN 14 mg/dL 6-24 Creatinine 0.8 mg/dL 0.50-1.40 One Over Creatinine 1.25 BUN/Creatinine Ratio 17.5 8-20 Calcium 9.5 mg/dL 8.1-9.9 eGFR Non- 116.0 > 60 eGFR 149.1 > 60 20 International Normalized Ratio 07/14/2012 Inr 0.92 0.88-1.13 21 Protime 10.9 SEC 10.3-13.5 22 1 [id number] 2 SEE RESULT BELOW Name: JAYESH LOVE : [address]: Marilee Sherwood MD Acct: [id number] Unit: [id number] AGE: 32 Location: [facility] Re04/27/17 SEX: M Status: REG REF SPEC: [id number] HUNG: 04/27/[address] [facility] [address]: Marilee Sherwood MD REQ: [id number] RECD: 04/27/17 STATUS: JASON RAJAN DR: Garcia Palomares III, MD _ SOURCE: URINE SPDESC: ORDERED: Urine Culture COMMENTS: [id number] Urine Source: Random Procedure Result Reported Site Urine Culture Final 04/28/17- 1331 ML No Growth (<1,000 CFU/mL) * ML - MAIN LAB ([facility]) . END OF REPORT * ML=Testing performed at Main Lab DEPARTMENT OF PATHOLOGY, [address] [place] [address] Eric Matthews M.D. Director [facility] # [id number] 3 [facility] Severe Sepsis and Septic Shock Management [...] testing ordered by reflex. Test Performed by: [address] [address] 6 Acute inflammation: >10.00 7 No bands [...] screening test (e.g., EIA). Test Performed by: [address] [address] 10 Finishing Range Feeder: TIMI ZAVALA 11 Finishing Range Feeder: TIMI ZAVALA 12 PT IS FASTING 13 Desirable [...] - FDP greater than 20 ug/ml 19 Anion gap measurement may be of limited value in the presence of any alkalosis, especially in a combined acid base disorder. . 20 Because ethnic data is not always readily [...] 15-29 5 Kidney failure <15 (or dialysis) 21 Recommended INR for Patients on Oral Anticoagulants Prophylaxis 2.0 - 3.0 Treatment of thrombosis 2.0 - 3.0 Prevention of embolism 2.0 - 3.0 Prevention of embolism from prosthetic heart valves 2.5 - 3.5 22 DIAGNOSIS,TREATMENT,AND THERAPY MUST BE BASED ON THE INR VALUE ALONE. Procedures Date CPT Code Description Status 04/22/2017 04597 EKG, Interpretation Only Completed 01/14/2015 81570 Remove Impacted Cerumen Completed Encounters Type Date Location Provider CPT E/M Dx Office Visit 09/09/2017 [facility] Internal Garcia Palomares, 86371 M79.671 10:20a Alina Taylor M.D. Office Visit 07/15/2017 [facility] Garcia Palomaers, 81159 S01.511D 10:40a Alina Driver M.D. Office Visit 05/04/2017 [facility] Tunde Palomares, 51588 M25.552 10:00a Alina Driver M.D. I82.401 A69.20 R94.5 Office Visit 04/24/2017 9:44a [facility] Shaina Gomez, 21449 T14.8 Assoc, GENERAL OFFICE CLERK Hospitalists I82.401 A69.20 Office Visit 04/23/2017 9:43a [facility] Shaina Gomez, 57289 T14.8 Assoc, GENERAL OFFICE CLERK Hospitalists I82.401 A69.20 Office Visit 04/22/2017 9:43a [facility] Shaina Gomez, 01241 T14.8 Assoc, GENERAL OFFICE CLERK Hospitalists I82.401 A69.20 Office Visit 04/20/2017 10:00a [facility] Garcia Palomares, 55550 I82.401 - Neisha Pettit M25.552 Office Visit 04/07/2017 11:40a [facility] Medicine Garcia Palomares, 33557 L03.115 - Neisha Pettit R60.0 Office Visit 03/01/2017 1:40p [facility] Garcia Palomares, 49083 M54.9 - Neisha Pettit Office Visit 02/04/2017 1:15p [facility]i [facility], 77789 K43.2 [facility] Office Visit 11/15/2016 3:40p [facility] Medicine Garcia Palomares, 42647 Z87.820 - Neisha Pettit R26.89 Office Visit 10/26/2016 10:00a [facility] Marlo Camacho, 83786 R91.8 Blanca Pettit Office Visit 10/05/2016 9:40a [facility] Medicine - Garcia Palomares, 91621 J06.9 Neisha Pettit Office Visit 07/30/2016 4:00p [facility] Andi Peoples, 60504 K43.2 [facility] Office Visit 10/02/2015 1:20p [facility] Internal Medicine - Garcia Palomares, 43721 R91.8 Brandon Pettit Z87.820 Office Visit 06/20/2015 3:00p [facility] Internal Medicine Garcia Palomares, 07092 781.2 - Brandon Pettit V15.52 719.47 553.20 Office Visit 05/21/2015 2:00p [facility] Internal Medicine Garcia Palomares, 09590 553.20 - Brandon Pettit Office Visit 01/15/2015 2:40p [facility] Internal Medicine Garcia Palomares, 37844 V15.52 - Brandon Pettit 781.99 Office Visit 10/08/2014 4:00p [facility] Medicine Garcia Palomares, 32461 924.00 - Brandon Pettit 285.9 V77.91 Office Visit 05/31/2014 11:40a [facility] Internal Medicine Garcia Palomares, 21522 781.2 - Brandon Pettit V06.1 Office Visit 09/20/2013 1:40p [facility] Internal [facility] Garcia Palomares, 60600 V70.0 - Brandon Pettit 781.2 V77.91 V77.1 Office Visit 06/06/2013 3:20p [facility] Internal [facility] Garcia Palomares, 85801 813.90 Brandon Pettit Office Visit 12/04/2012 1:40p [facility] Garcia Palomares, 30027 V58.32 Brandon Pettit Office Visit 10/24/2012 9:40a [facility] Garcia Palomares, 80361 453.42 Brandon Pettit Office Visit 08/03/2012 1:40p [facility] Garcia Palomares, 54983 922.31 Brandon Ptetit Office Visit 07/31/2012 10:36a [facility], Candelario Devine M.D. 25665 568.81 Hospitalists 453.9 Office Visit 07/30/2012 10:35a [facility], Candelario Devine M.D. 52731 453.9 Hospitalists 568.81 Office Visit 07/20/2012 1:20p [facility] Internal [facility] Garcia Palomares, 62358 453.42 - Brandon Pettit Office Visit 07/07/2012 4:00p [facility] Doris Wilde, 05788 719.46 - Brandon N.PKim V77.1 V77.91 278.00 Office Visit 03/20/2012 3:00p [facility] Medicine Garcia Palomares, 97917 V70.0 - Brandon Pettit V15.52 Plan of Care Future Appointment(s):10/28/2017 1:30 pm - Andi Peoples MD at [facility]/25/2017 - Garcia Palomares M.D.K62.5 Hemorrhage of anus and rectumNew Labs:CBC Auto Diff
--- OUTSIDE RECORDS SUMMARY | 2017-11-11 23:18 | XMS REPORT ---
:1985 External Reference #:[id number] Author Organization [facility] Address [address] [address] Phone [phone] Care Team Providers Name Role Phone Garcia Palomares III, MD Care Team Information Table Runner Unavailable Garcia Palomares III, MD Primary Care Physician Unavailable Payers Type Date Identification Numbers Payment Provider Subscriber Commercial Effective: Policy Number: Damon Stern [place] 2013 [id number] Group Name: [id number] [address] PayID: [id number] [place] [address] Commercial Expires: 2013 Policy Number: Total Care/De Souza MNG Jayesh J Lagunitas [id number] [facility] PayID: [id number] [address] [address] [place] [address] Problems Date Description Provider Status Onset: 03/20/2012 [...] CPT Code Status Date Vaccine Lot # 36120 Given 05/31/2014 Tdap - Tetanus/Diptheria/Acellular Pertussis [id number] 83348 Given 01/29/2014 Meningococcal Conjugate Vaccine 53474 Given 01/29/2014 Meningococcal Conjugate Vaccine [id number] 45857 Given Unknown Tetanus And Diptheria (Td) For [...] 1 Urine Appearance Clear 1 Urine Specific Arbuckle 1.011 1.010-1.030 1 Urine pH 6.0 5-9 [...] 60 eGFR 149.1 > 60 22 1 [id number] 2 SEE RESULT BELOW Name: JAYESH LOVE : [address]: Marilee Sherwood MD Acct: [id number] Unit: [id number] AGE: 32 Location: [facility] Re04/27/17 SEX: M Status: REG REF SPEC: [id number] HUNG: 04/27/17-[address]: Marilee Sherwood MD REQ: [id number] RECD: 07/ STATUS: COMP OTHR DR: Garcia Palomares III, MD _ SOURCE: URINE [facility]: ORDERED: Urine Culture COMMENTS: [id number] Urine Source: Random Procedure Result Reported Site Urine Culture Final 04/28/17- 1331 ML No Growth (<1,000 CFU/mL) * ML - MAIN LAB ([facility]) . END OF REPORT * ML=Testing performed at Main Lab DEPARTMENT OF PATHOLOGY, [address] [place] [address] Eric Matthews M.D. Director [facility] # [id number] 3 [facility] Severe Sepsis and Septic Shock Management [...] testing ordered by reflex. Test Performed by: [place] [address] 6 Acute inflammation: >10.00 7 No bands [...] screening test (e.g., EIA). Test Performed by: [address] [address] 10 Manager Poker: [id number] ZAVALA 11 Manager Poker: [id number] ZAVALA 12 PT IS FASTING 13 Desirable [...] Procedures Date CPT Code Description Status 04/22/2017 31430 EKG, Interpretation Only Completed 01/14/2015 77405 Remove Guy Marquez Completed Encounters Type Date Location Provider CPT E/M Dx Office Visit 10/25/2017 [facility] Internal Garcia Palomares, 55857 K62.5 11:40a Alina Driver M.D. Office Visit 09/09/2017 [facility] Garcia Palomares, 20758 M79.671 10:20a Alina Taylor M.D. Office Visit 07/15/2017 [facility] Garcia Palomares, 56160 S01.511D 10:40a Alina Driver M.D. Office Visit 05/04/2017 [facility] Garcia Palomares, 93469 M25.552 10:00a Alina Driver M.D. I82.401 A69.20 R94.5 Office Visit 04/24/2017 9:44a [facility] Shaina Gomez, 90405 T14.8 Assoc, SWINE EXTENSION FIELD SPECIALIST Hospitalists I82.401 A69.20 Office Visit 04/23/2017 9:43a [facility] Shaina Gomez, 40670 T14.8 Assoc, SWINE EXTENSION FIELD SPECIALIST Hospitalists I82.401 A69.20 Office Visit 04/22/2017 9:43a [facility] Shaina Gomez, 43377 T14.8 Assoc, SWINE EXTENSION FIELD SPECIALIST Hospitalists I82.401 A69.20 Office Visit 04/20/2017 10:00a [facility] Garcia Palomares, 36906 I82.401 - Neisha Pettit M25.552 Office Visit 04/07/2017 11:40a [facility] Garcia Palomares, 00262 L03.115 - Neisha Pettit R60.0 Office Visit 03/01/2017 1:40p [facility] Garcia Palomares, 12483 M54.9 - Neisha Pettit Office Visit 02/04/2017 1:15p [facility], 42753 K43.2 [facility] Office Visit 11/15/2016 3:40p [facility] Garcia Palomares, 84165 Z87.820 - Neisha Pettit R26.89 Office Visit 10/26/2016 10:00a [facility] Marlo Camacho, 95904 R91.8 Blanca Pettit Office Visit 10/05/2016 9:40a [facility] - Garcia Palomares, 34244 J06.9 Neisha Pettit Office Visit 07/30/2016 4:00p [facility] Andi BrendenKim Peoples, 61687 K43.2 [facility] Office Visit 10/02/2015 1:20p [facility] - Garcia Palomares, 92109 R91.8 Brandon Pettit Z87.820 Office Visit 06/20/2015 3:00p [facility] Garcia Palomares, 63755 781.2 - Brandon Pettit V15.52 719.47 553.20 Office Visit 05/21/2015 2:00p [facility] Garcia Palomares, 97752 553.20 - Brandon Pettit Office Visit 01/15/2015 2:40p [facility] Garcia Palomares, 50330 V15.52 - Brandon Pettit 781.99 Office Visit 10/08/2014 4:00p [facility] Garcia Palomares, 82227 924.00 - Brandon Pettit 285.9 V77.91 Office Visit 05/31/2014 11:40a [facility] Garcia Palomares, 80278 781.2 - Brandon Pettit V06.1 Office Visit 09/20/2013 1:40p [facility] Garcia Palomares, 18946 V70.0 - Brandon Pettit 781.2 V77.91 V77.1 Office Visit 06/06/2013 3:20p [facility] - Garcia Palomares, 68753 813.90 Brandon Pettit Office Visit 12/04/2012 1:40p [facility] - Garcia Palomares, 80359 V58.32 Brandon Pettit Office Visit 10/24/2012 9:40a [facility] - Garcia Palomares, 16416 453.42 Brandon Pettit Office Visit 08/03/2012 1:40p [facility] Garcia Palomares, 52045 922.31 Brandon Pettit Office Visit 07/31/2012 10:36a [facility], Candelario Devine M.D. 17675 568.81 Hospitalists 453.9 Office Visit 07/30/2012 10:35a [facility], Candelario Devine M.D. 14288 453.9 Hospitalists 568.81 Office Visit 07/20/2012 1:20p [facility] Garcia Palomares, 65685 453.42 - Brandon Pettit Office Visit 07/07/2012 4:00p [facility] Doris Wilde, 46029 719.46 - Brandon N.PKim V77.1 V77.91 278.00 Office Visit 03/20/2012 3:00p [facility] Garcia Palomares, 88248 V70.0 - Brandon Pettit V15.52 Plan of Care Future Appointment(s):02/01/2018 1:30 pm - [facility] at [facility]/01/2017 - Marlo Camacho M.D.R91.1 Solitary pulmonary noduleFollow up:As needed
[2017-11-12 00:32] VITALS: BP 151/110
--- NOTE | 2017-11-12 07:55 | RAD ---
HISTORY: Choking, possible aspiration COMPARISONS: October 13, 2012 VIEWS: 4: Frontal dual-energy and lateral views of the chest. The patient is obliqued to the right. FINDINGS: CARDIOMEDIASTINAL SILHOUETTE: The cardiomediastinal silhouette is normal. ARNALDO: The arnaldo are normal. PLEURA: The costophrenic angles are sharp. No pleural abnormalities are noted. LUNG PARENCHYMA: The lungs are clear. ABDOMEN: The upper abdomen is clear. There is no subphrenic gas. BONES AND SOFT TISSUES: No bone or soft tissue abnormalities are noted. OTHER: None. IMPRESSION: NO ACTIVE CARDIOPULMONARY DISEASE.
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
== END 2017-11-12 00:32 | disposition home or self-care (01) ==
LOC: ED 22:21
DX: T17.928A Food in respiratory tract, part unspecified causing other injury, initial encounter (principal); X58.XXXA Exposure to other specified factors, initial encounter; Y92.9 Unspecified place or not applicable; Z72.0 Tobacco use; Z79.01 Long term (current) use of anticoagulants
CPT/HCPCS: 71046; 99282

== ENCOUNTER 2018-01-02 15:26 | Emergency (ER) | payer OTHER ==
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
--- NOTE | 2018-01-02 17:20 | RAD ---
INDICATION: Pain and swelling. COMPARISON: April 14, 2017 TECHNIQUE: Duplex interrogation of the Lowerextremity was performed. FINDINGS: Deep veins: The common femoral, great saphenous, profunda femoris, proximal, mid, and distal deep femoral, popliteal, posterior tibial, and peroneal veins were interrogated. There is tibial thrombosis in the left common femoral vein extending to the popliteal vein. The peroneal veins not visualized There is chronic thrombus in right femoral vein extending to the popliteal vein. There is otherwise normal compressibility, augmentation, and phasic flow. Superficial veins: There are no findings of superficial thrombophlebitis. Popliteal fossa:There is no evidence of a popliteal cyst. Soft tissues:There are no soft tissue abnormalities. IMPRESSION: 1. ON THE RIGHT THERE IS NONOCCLUSIVE, CHRONIC, RIGHT FEMORAL THROUGH POPLITEAL VEIN DEEP VENOUS THROMBOSIS. 2. ON THE LEFT THERE IS ACUTE, OCCLUSIVE DEEP VENOUS THROMBOSIS EXTENDING FROM THE FEMORAL VEIN TO THE POPLITEAL VEIN WITH PROBABLE INVOLVEMENT OF THE TIBIAL VEINS.
[2018-01-02 18:06] LABS: INR 0.91 (0.77-1.02)
[2018-01-02 18:38] LABS: EGFR Non-African American 120.7 (>60)
[2018-01-02 18:44] LABS: ABS Basophils 0.1 10^3/ul (0-0.2); ABS Eosinophils 0.1 10^3/ul (0-0.6); ABS Lymphocytes 2.1 10^3/ul (1.0-4.8); ABS Monocytes 0.6 10^3/ul (0-0.8); ABS Neutrophils 3.7 10^3/ul (1.5-7.7); ABS Nucleated RBC 0 10^3/ul; Eosinophil % 1.6 % (0-6); Hematocrit 40 % (42-52); Hemoglobin 13.5 g/dl (14.0-18.0); Lymphocyte % 32.5 % (25-47); Mean Corpuscular HGB Conc 34 g/dl (31-36); Mean Corpuscular Hemoglobin 29 pg (27-31); Mean Corpuscular Volume 86 fL (80-94); Mean Platelet Volume 8 um3 (7.4-10.4); Nucleated Red Blood Cells % 0; Platelet Count 245 10^3/ul (150-450); Red Blood Count 4.68 10^6/ul (4.0-5.4); Red Cell Distribution Width 14 % (10.5-15); White Blood Count 6.5 10^3/ul (3.5-10.8)
[2018-01-02] MEDS ORDERED: Iohexol 350* (CONTRAST) 500 ML MDV IV ONE (18:57)
[2018-01-02] MEDS ORDERED: Enoxaparin(*) 100 MG/ML SYR SUBCUT ONE (19:49)
[2018-01-02 20:54] VITALS: BP 147/83
== END 2018-01-02 20:52 | disposition home or self-care (01) ==
LOC: ED 15:26
DX: I82.403 Acute embolism and thrombosis of unspecified deep veins of lower extremity, bilateral (principal); M79.662 Pain in left lower leg; M79.661 Pain in right lower leg; Z79.01 Long term (current) use of anticoagulants; Z72.0 Tobacco use
CPT/HCPCS: 36415; 71275; 80053; 85025; 85610; 85730; 93970; 99285; J1650

== ENCOUNTER 2019-01-06 16:53 | Emergency (ER) | payer OTHER ==
--- OUTSIDE RECORDS SUMMARY | 2019-01-06 17:21 | XMS REPORT | Continuity of Care Document ---
:1985 External Reference #:[id number] Author Name Covert, Criselda Care Team Providers Name Role Phone Garcia Palomares III, MD Primary Care Physician Unavailable Payers Date Identification Numbers Payment Provider Subscriber Effective: 2013 Policy Number: [id number] Damonramesh [employer] Group Number: [id number] [address] PayID: [id number] [place] [address] Expires: 2013 Policy Number: [id number] [employer] Jayesh [employer] PayID: [id number] [address] [address] [place] [address] Effective: 1998 Policy Number: [id number] [employer] [facility] Nancy [employer] Expires: 2018 PayID: [id number] [address] [place] [address] Effective: 1997 Policy Number: [id number] [facility] Anand F[employer] Expires: 1998 Group Number: [id number] [address] [address] PayID: [id number] [place] [id number] Advance Directives Description No Information Available Problems Date Description Provider Status Onset: 03/20/2012 Traumatic brain injury Garcia Palomares M.D. Active Onset: 09/20/2013 Abnormal gait Garcia Palomares M.D. Active Onset: 11/08/2018 Postthrombotic syndrome Marquis Meyer M.D. Active Family History Date Family Member(s) Observation Comments General Multiple Sclerosis (MS) Father due to (+) MS () - age 57 Social History Type Date Description Comments Sex Unknown Marital Status Single Lives With Family Occupation Student Tobacco Use Start: Unknown End: Former Cigarette Smoker Unknown Smoking Status Reviewed: 11/08/18 Former Cigarette Smoker Tobacco Use Start: Unknown Patient is a current cigar smoker, smokes every day Tobacco Use Start: Unknown Patient is a current pipe smoker, smokes every day Smokeless Tobacco Never Used Smokeless Tobacco ETOH Use Occasionally consumes alcohol Recreational Drug Use occ marijuana Tobacco Use Start: Unknown End: Patient is a former Quit April 2018; Unknown smoker down to just a few per day. Max 1ppd, began age 16 Exercise Type/Frequency Exercises sporadically walks on occ Allergies, Adverse Reactions, Alerts Date Description Reaction Status Severity Comments 03/20/2012 Sulfa not sure - was an Active Medications Medication Date Status Form Strength Qnty SIG Indications Ordering Provider Xarelto 02/02/20 Active Tablets 20mg 90tab 1 by mouth I82.492 Garcia E. 18 s every day Wilver Palomares Lisinopril Active Tablets 10mg 30tab 1 by mouth Garcia E. 00 s every day Wilver Palomares Oxycodone-Acet 07/13/20 Hx Tablets 5-325mg 14tab 1--2 tab by Elo Saenz aminophen 18 - s mouth every Foster, Unknown 4- 6 hours as needed for pain Augmentin 06/27/20 Hx Tablets 875-125mg 20tab one tablet K43.2 Andi Lu 18 - s twice a day [place] Unknown for 10 days , MD Garcíarelnargis 01/05/20 Hx Tablets 15mg 42tab 1 by mouth I82.492 Garcia E. 18 - s twice a day Marielle, 02/02/20 M.Pedro 18 Xarelto 05/24/20 Hx Tablets 20mg 90tab 1 by mouth I82.401 Garcia E. 17 - s every day Marielle, 01/04/20 Wilver 18 Ciprofloxacin 04/26/20 Hx Tablets 250mg 14tab one by adina Noriega HCL 17 - s twice daily Marielle 07/07/20 for 7 days M.Pedro 17 Hydrocodone-Ac 04/22/20 Hx Tablets 5-325mg 40tab 1-2 tabs up Garcia Noriega etaminophen 17 - s to 4 itmes a Marielle, 07/13/20 day as needd M.D. 17 Xarelto 04/20/20 Hx Tablets 15mg 42tab 1 by mouth I82.401 Garcia Noriega 17 - s twice a day Marielle, 05/24/20 M.D. 17 Tramadol HCL 04/20/20 Hx Tablets 50mg 40tab 1-2 tablets M25.552 Garcia Noriega 17 - s every 6 Marielle, 07/14/20 hours as M.D. 17 needed Lovenox 04/14/20 Hx Solution 100mg/ml 30ml SQ bid Marilee 17 - [place], 04/22/20 M.D. 17 Doxycycline 04/07/20 Hx Capsules 100mg 28cap 1 by mouth L03.115 Garcia Noriega Hyclate 17 - s twice a day Marielle, 04/20/20 M.D. 17 No Active 07/30/20 Hx Unknown Medications - 04/07/20 17 No Active 12/04/19 Hx Unknown Medications 13 - 06/20/20 15 Lovenox Hx Solution 100mg/ml 60uni On Hold. Garcia Noriega 00 - ts 1 Marielle, 12/04/19 subcutaneous M.D. 13 ly q12h as directed Benefiber Hx Powder Unknown 00 - Unknown Clindamycin Hx Capsules 300mg 1 tabs by Unknown HCL 00 - mouth 3 10/24/19 times a day 18 Lovenox Hx Solution 100mg/ml 1 Unknown 00 - subcutaneous Unknown ly every 12 hours as directed Oxycodone-Acet Hx Tablets 5-325mg take 1 Unknown aminophen 00 - tablet by Unknown mouth every 3 hours if needed for Stronger pain Immunizations CPT Code Status Date Vaccine Lot # [id number] Given 05/31/2014 Tdap - Tetanus/Diptheria/Acellular Pertussis [id number] Given 01/29/2014 Meningitis MCV4 MenACWY Meningococcal Conjugate Vaccine [id number] Given 01/29/2014 Meningitis MCV4 MenACWY Meningococcal Conjugate [id number] Vaccine [id number] Given 04/06/1999 Tetanus And Diptheria (Td) For Adult Use Preservative Free 09308 Given Unknown Tetanus And Diptheria (Td) For Adult Use Preservative Free [id number] Refused 07/07/2012 Fluzone Vaccine Vital Signs Date Vital Result Comment 11/08/2018 10:24am Height 66 inches 5'6" Weight 215.00 lb Heart Rate 60 /min BP Systolic Sitting 110 mmHg BP Diastolic Sitting 70 mmHg Respiratory Rate 16 /min BMI (Body Mass Index) 34.7 kg/m2 10/24/2018 10:11am Heart Rate 62 /min Respiratory Rate 18 /min Body Temperature 96.2 F 10/06/2018 10:11am Height 66 inches 5'6" Weight 225.00 lb Heart Rate 56 /min BP Systolic Sitting 120 mmHg BP Diastolic Sitting 82 mmHg O2 % BldC Oximetry 99 % BMI (Body Mass Index) 36.3 kg/m2 08/08/2018 10:20am Heart Rate 68 /min Respiratory Rate 18 /min Body Temperature 96.7 F 07/25/2018 10:03am Heart Rate 60 /min Respiratory Rate 18 /min Body Temperature 97.7 F 07/18/2018 10:06am Heart Rate 74 /min Respiratory Rate 16 /min Body Temperature 96.6 F 07/13/2018 2:29pm Heart Rate 62 /min BP Systolic 160 mmHg BP Diastolic 80 mmHg Respiratory Rate 16 /min Body Temperature 96.7 F 07/12/2018 3:45pm Height 66 inches 5'6" Weight 212.00 lb Heart Rate 83 /min BP Systolic Sitting 120 mmHg BP Diastolic Sitting 76 mmHg O2 % BldC Oximetry 99 % BMI (Body Mass Index) 34.2 kg/m2 07/11/2018 10:32am Heart Rate 74 /min Respiratory Rate 18 /min Body Temperature 96.3 F 07/04/2018 10:23am Heart Rate 76 /min BP Systolic 138 mmHg BP Diastolic 76 mmHg Respiratory Rate 18 /min Body Temperature 97.6 F 06/27/2018 9:37am Heart Rate 82 /min Respiratory Rate 18 /min Body Temperature 96.7 F 05/19/2018 2:28pm Height 66 inches 5'6" Weight 215.00 lb Heart Rate 62 /min BP Systolic 150 mmHg BP Diastolic 90 mmHg Respiratory Rate 16 /min Body Temperature 97.8 F BMI (Body Mass Index) 34.7 kg/m2 04/26/2018 10:27am Height 66 inches 5'6" Weight 215.00 lb Heart Rate 68 /min BP Systolic 147 mmHg BP Diastolic 99 mmHg O2 % BldC Oximetry 99 % BMI (Body Mass Index) 34.7 kg/m2 04/04/2018 10:15am Heart Rate 72 /min BP Systolic Sitting 118 mmHg BP Diastolic Sitting 86 mmHg Respiratory Rate 18 /min Body Temperature 98.6 F 03/07/2018 4:09pm Weight 217.00 lb Heart Rate 78 /min BP Systolic Sitting 130 mmHg BP Diastolic Sitting 80 mmHg O2 % BldC Oximetry 97 % 02/14/2018 9:07am Heart Rate 72 /min BP Systolic 130 mmHg BP Diastolic 90 mmHg Respiratory Rate 18 /min Body Temperature 94.7 F 01/04/2018 3:12pm Weight 215.00 lb Heart Rate 79 /min BP Systolic Sitting 150 mmHg right arm BP Diastolic Sitting 100 mmHg right arm BP Systolic Standing 160 mmHg right arm 10 min later BP Diastolic Standing 110 mmHg right arm 10 min later Body Temperature 96.8 F O2 % BldC Oximetry 98 % 11/01/2017 11:05am Height 66.5 inches 5'6.50" Weight 215.00 lb Heart Rate 68 /min BP Systolic 132 mmHg BP Diastolic 80 mmHg Respiratory Rate 18 /min Body Temperature 96.6 F BMI (Body Mass Index) 34.2 kg/m2 10/25/2017 12:00pm Weight 215.00 lb Heart Rate 75 /min BP Systolic Sitting 132 mmHg BP Diastolic Sitting 82 mmHg Body Temperature 97.3 F O2 % BldC Oximetry 99 % 09/09/2017 10:18am Weight 191.25 lb Heart Rate 52 /min BP Systolic 142 mmHg BP Diastolic 82 mmHg O2 % BldC Oximetry 93 % 07/15/2017 10:56am Height 66.5 inches 5'6.50" Weight 199.25 lb Heart Rate 74 /min BP Systolic Sitting 154 mmHg BP Diastolic Sitting 90 mmHg Body Temperature 96.4 F O2 % BldC Oximetry 98 % BMI (Body Mass Index) 31.7 kg/m2 05/04/2017 10:12am Weight 203.00 lb Heart Rate 77 /min BP Systolic 152 mmHg BP Diastolic 80 mmHg Body Temperature 97.0 F O2 % BldC Oximetry 99 % 04/20/2017 10:03am Heart Rate 86 /min BP Systolic 136 mmHg BP Diastolic 78 mmHg Body Temperature 97.9 F O2 % BldC Oximetry 98 % 04/07/2017 11:49am Weight 211.00 lb Heart Rate 74 /min BP Systolic 128 mmHg BP Diastolic 62 mmHg Body Temperature 98.5 F O2 % BldC Oximetry 99 % 03/01/2017 2:14pm Height 66.5 inches 5'6.50" Weight 211.50 lb Heart Rate 63 /min BP Systolic 130 mmHg BP Diastolic 80 mmHg Body Temperature 95.9 F O2 % BldC Oximetry 99 % BMI (Body Mass Index) 33.6 kg/m2 02/04/2017 1:34pm Height 66.5 inches 5'6.50" Weight 210.00 lb Heart Rate 72 /min BP Systolic 126 mmHg BP Diastolic 84 mmHg Respiratory Rate 16 /min Body Temperature 97.9 F BMI (Body Mass Index) 33.4 kg/m2 11/15/2016 3:37pm Height 66.5 inches 5'6.50" Weight 206.50 lb Heart Rate 88 /min BP Systolic 126 mmHg BP Diastolic 70 mmHg Body Temperature 96.5 F O2 % BldC Oximetry 98 % BMI (Body Mass Index) 32.8 kg/m2 10/26/2016 10:09am Height 66.5 inches 5'6.50" Weight 200.00 lb Heart Rate 68 /min BP Systolic 136 mmHg BP Diastolic 80 mmHg Respiratory Rate 18 /min Body Temperature 96.5 F BMI (Body Mass Index) 31.8 kg/m2 10/05/2016 9:46am Weight 205.00 lb Heart Rate 85 /min BP Systolic Sitting 154 mmHg BP Diastolic Sitting 88 mmHg Body Temperature 96.5 F O2 % BldC Oximetry 98 % 07/30/2016 4:14pm Height 66.5 inches 5'6.50" Weight 190.00 lb Heart Rate 72 /min BP Systolic 138 mmHg BP Diastolic 82 mmHg Respiratory Rate 16 /min Body Temperature 99.1 F BMI (Body Mass Index) 30.2 kg/m2 10/02/2015 1:27pm Weight 188.00 lb Heart Rate 85 /min BP Systolic Sitting 134 mmHg BP Diastolic Sitting 80 mmHg Body Temperature 97.8 F 06/20/2015 2:56pm Weight 190.00 lb Heart Rate 80 /min BP Systolic Sitting 140 mmHg BP Diastolic Sitting 84 mmHg Body Temperature 98.4 F O2 % BldC Oximetry 98 % 05/21/2015 2:08pm Weight 193.25 lb Heart Rate 62 /min BP Systolic Sitting 124 mmHg BP Diastolic Sitting 72 mmHg Body Temperature 96.4 F O2 % BldC Oximetry 95 % 01/15/2015 2:57pm Weight 182.50 lb Heart Rate 55 /min BP Systolic Sitting 130 mmHg BP Diastolic Sitting 80 mmHg Body Temperature 97.9 F O2 % BldC Oximetry 98 % 01/14/2015 1:52pm Weight 200.00 lb Heart Rate 78 /min BP Systolic Sitting 130 mmHg BP Diastolic Sitting 88 mmHg 10/08/2014 4:30pm Weight 193.00 lb Heart Rate 80 /min BP Systolic Sitting 130 mmHg BP Diastolic Sitting 70 mmHg Body Temperature 97.5 F 05/31/2014 11:57am Weight 196.00 lb BP Systolic Sitting 130 mmHg BP Diastolic Sitting 86 mmHg Body Temperature 97.0 F 09/20/2013 1:50pm Height 66 inches 5'6" Weight 229.50 lb Heart Rate 78 /min BP Systolic 134 mmHg BP Diastolic 82 mmHg BMI (Body Mass Index) 37.0 kg/m2 06/06/2013 3:22pm Weight 218.75 lb Heart Rate 96 /min BP Systolic Sitting 144 mmHg BP Diastolic Sitting 82 mmHg 12/04/2012 1:51pm Height 66.5 inches 5'6.50" Weight 226.00 lb Heart Rate 80 /min BP Systolic Sitting 130 mmHg BP Diastolic Sitting 80 mmHg BMI (Body Mass Index) 35.9 kg/m2 10/24/2012 9:42am Height 66.5 inches 5'6.50" Weight 229.00 lb Heart Rate 80 /min BP Systolic Sitting 120 mmHg BP Diastolic Sitting 64 mmHg BMI (Body Mass Index) 36.4 kg/m2 08/03/2012 1:41pm Height 66.25 inches 5'6.25" Weight 234.00 lb Heart Rate 96 /min BP Systolic Sitting 136 mmHg BP Diastolic Sitting 84 mmHg BMI (Body Mass Index) 37.5 kg/m2 07/20/2012 1:14pm Height 66.5 inches 5'6.50" Weight 230.00 lb Heart Rate 108 /min BP Systolic Sitting 138 mmHg BP Diastolic Sitting 86 mmHg BMI (Body Mass Index) 36.6 kg/m2 07/07/2012 3:54pm Height 66.5 inches 5'6.50" Weight 230.00 lb Heart Rate 72 /min BP Systolic Sitting 158 mmHg BP Diastolic Sitting 98 mmHg BMI (Body Mass Index) 36.6 kg/m2 03/20/2012 2:47pm Height 66.5 inches 5'6.50" Weight 236.50 lb Heart Rate 84 /min BP Systolic Sitting 128 mmHg BP Diastolic Sitting 80 mmHg BMI (Body Mass Index) 37.6 kg/m2 Results Test Date Facility Test Result H/L Range Note Platelet Count 07/17/2018 [facility] Platelet Count 243 10^3/uL N 150-[address] [place] [address] [phone] Mean Platelet Volume 8.3 um3 N 7.4-10.4 Inr/Protime 07/17/2018 [facility] Inr 0.97 N 0.77-1.[address] [place] [address] [phone] Laboratory test 07/17/2018 [facility] Partial 35.1 seconds N 26.0-36.[address] [place] [address] PTT [phone] CBC Auto Diff 04/28/2018 [facility] White Blood 6.6 10^3/uL N 3.5-10.[address] [place] [address] [phone] Red Blood Count 4.92 10^6/uL N 4.00-5.40 Hemoglobin 14.5 g/dL N 14.0-18.0 Hematocrit 42 % N 42-52 Mean Corpuscular Volume 86 fL N 80-94 Mean Corpuscular Hemoglobin 29 pg N 27-31 Mean Corpuscular HGB Conc 34 g/dL N 31-36 Red Cell Distribution Width 15 % N 10.5-15 Platelet Count 216 10^3/uL N 150-450 Mean Platelet Volume 9.0 um3 N 7.4-10.4 Abs Neutrophils 3.4 10^3/uL N 1.5-7.7 Abs Lymphocytes 2.3 10^3/uL N 1.0-4.8 Abs Monocytes 0.6 10^3/uL N 0-0.8 Abs Eosinophils 0.2 10^3/uL N 0-0.6 Abs Basophils 0.1 10^3/uL N 0-0.2 Abs Nucleated RBC 0 10^3/uL Granulocyte % 51.8 % N 38-83 Lymphocyte % 35.3 % N 25-47 Monocyte % 8.4 % High 0-7 Eosinophil % 3.6 % N 0-6 Basophil % 0.9 % N 0-2 Nucleated Red Blood Cells % 0.1 Basic Metabolic Panel 04/28/2018 [facility] Sodium 142 mmol/L N 135-[address] [place] [address] [phone] Potassium 4.1 mmol/L N 3.5-5.0 Chloride 109 mmol/L N 101-111 Co2 Carbon Dioxide 26 mmol/L N 22-32 Anion Gap 7 mmol/L N 2-11 Glucose 96 mg/dL N 70-100 Blood Urea Nitrogen 21 mg/dL N 6-24 Creatinine 0.74 mg/dL N 0.67-1.17 BUN/Creatinine Ratio 28.4 High 8-20 Calcium 9.6 mg/dL N 8.6-10.3 Egfr Non- 121.8 >60 Egfr 147.4 >60 1 CBC Auto Diff 01/02/2018 [facility] White Blood 6.5 10^3/uL N 3.5-10.[address] [place] [address] [phone] Red Blood Count 4.68 10^6/uL N 4.0-5.4 Hemoglobin 13.5 g/dL Low 14.0-18.0 Hematocrit 40 % Low 42-52 Mean Corpuscular Volume 86 fL N 80-94 Mean Corpuscular Hemoglobin 29 pg N 27-31 Mean Corpuscular HGB Conc 34 g/dL N 31-36 Red Cell Distribution Width 14 % N 10.5-15 Platelet Count 245 10^3/uL N 150-450 Mean Platelet Volume 8 um3 N 7.4-10.4 Abs Neutrophils 3.7 10^3/uL N 1.5-7.7 Abs Lymphocytes 2.1 10^3/uL N 1.0-4.8 Abs Monocytes 0.6 10^3/uL N 0-0.8 Abs Eosinophils 0.1 10^3/uL N 0-0.6 Abs Basophils 0.1 10^3/uL N 0-0.2 Abs Nucleated RBC 0 10^3/uL Granulocyte % 56.4 % N 38-83 Lymphocyte % 32.5 % N 25-47 Monocyte % 8.6 % High 0-7 Eosinophil % 1.6 % N 0-6 Basophil % 0.9 % N 0-2 Nucleated Red Blood Cells % 0 Inr/Protime 01/02/2018 [facility] Inr 0.91 N 0.77-1.[address] [place] [address] [phone] Laboratory test 01/02/2018 [facility] Partial 33.5 seconds N 26.0-36.[address] [place] [address] PTT [phone] Comp Metabolic 01/02/2018 [facility] Sodium 138 mmol/L N 133- [address] [place] [address] [phone] Potassium 4.3 mmol/L N 3.5-5.0 Chloride 105 mmol/L N 101-111 Co2 Carbon Dioxide 26 mmol/L N 22-32 Anion Gap 7 mmol/L N 2-11 Glucose 97 mg/dL N 70-100 Blood Urea Nitrogen 13 mg/dL N 6-24 Creatinine 0.75 mg/dL N 0.67-1.17 BUN/Creatinine Ratio 17.3 N 8-20 Calcium 9.8 mg/dL N 8.6-10.3 Total Protein 7.1 g/dL N 6.4-8.9 Albumin 4.5 g/dL N 3.2-5.2 Globulin 2.6 g/dL N 2-4 Albumin/Globulin Ratio 1.7 N 1-3 Total Bilirubin 0.80 mg/dL N 0.2-1.0 Alkaline Phosphatase 68 U/L N 34-104 Alt 15 U/L N 7-52 Ast 19 U/L N 13-39 Egfr Non- 120.7 >60 Egfr 155.2 >60 2 CBC Auto Diff 10/26/2017 [facility] White Blood 7.1 10^3/uL N 3.5-10.[address] [place] [address] [phone] Red Blood Count 4.78 10^6/uL N 4.0-5.4 Hemoglobin 13.6 g/dL Low 14.0-18.0 Hematocrit 41 % Low 42-52 Mean Corpuscular Volume 85 fL N 80-94 Mean Corpuscular Hemoglobin 28 pg N 27-31 Mean Corpuscular HGB Conc 34 g/dL N 31-36 Red Cell Distribution Width 16 % High 10.5-15 Platelet Count 238 10^3/uL N 150-450 Mean Platelet Volume 8 um3 N 7.4-10.4 Abs Neutrophils 5.3 10^3/uL N 1.5-7.7 Abs Lymphocytes 0.8 10^3/uL Low 1.0-4.8 Abs Monocytes 0.7 10^3/uL N 0-0.8 Abs Eosinophils 0.1 10^3/uL N 0-0.6 Abs Basophils 0.1 10^3/uL N 0-0.2 Abs Nucleated RBC 0 10^3/uL Granulocyte % 75.7 % N 38-83 Lymphocyte % 11.8 % Low 25-47 Monocyte % 10.3 % High 1-9 Eosinophil % 1.4 % N 0-6 Basophil % 0.8 % N 0-2 Nucleated Red Blood Cells % 0 CBC Auto Diff 05/04/2017 [facility] White Blood 8.0 10^3/uL N 3.5-10.[address] [place] [address] [phone] Red Blood Count 3.83 10^6/uL Low 4.0-5.4 Hemoglobin 11.1 g/dL Low 14.0-18.0 Hematocrit 34 % Low 42-52 Mean Corpuscular Volume 89 fL N 80-94 Mean Corpuscular Hemoglobin 29 pg N 27-31 Mean Corpuscular HGB Conc 33 g/dL N 31-36 Red Cell Distribution Width 15 % N 10.5-15 Platelet Count 760 10^3/uL High 150-450 Mean Platelet Volume 8 um3 N 7.4-10.4 Abs Neutrophils 5.3 10^3/uL N 1.5-7.7 Abs Lymphocytes 1.8 10^3/uL N 1.0-4.8 Abs Monocytes 0.7 10^3/uL N 0-0.8 Abs Eosinophils 0.2 10^3/uL N 0-0.6 Abs Basophils 0.1 10^3/uL N 0-0.2 Abs Nucleated RBC 0 10^3/uL N Granulocyte % 66.7 % N 38-83 Lymphocyte % 22.0 % Low 25-47 Monocyte % 8.5 % N 1-9 Eosinophil % 1.9 % N 0-6 Basophil % 0.9 % N 0-2 Nucleated Red Blood Cells % 0 N Liver Function 05/04/2017 [facility] Total Protein 7.1 g/dL N 6.4-8.[address] [place] [address] [phone] Albumin 4.1 g/dL N 3.2-5.2 Globulin 3.0 g/dL N 2-4 Albumin/Globulin Ratio 1.4 N 1-3 Total Bilirubin 1.40 mg/dL High 0.2-1.0 Direct Bilirubin 0.20 mg/dL High 0.03-0.18 Indirect Bilirubin 1.2 mg/dL High 0.3-1.0 Alkaline Phosphatase 79 U/L N 34-104 Alt 34 U/L N 7-52 Ast 22 U/L N 13-39 Urine Culture And 04/27/2017 [facility] Urine Culture SEE RESULT 3, [address] [place] [address] [phone] Urinalysis Profile 04/27/2017 [facility] Urine Color Yellow N [address] [place] [address] [phone] Urine Appearance Clear N Urine Specific [place] 1.011 N 1.010-1.030 Urine pH 6.0 N 5-9 Urine Urobilinogen Negative N Negative Urine Ketones Negative N Negative Urine Protein Negative N Negative Urine Leukocytes Negative N Negative Urine Blood Negative N Negative Urine Nitrite Negative N Negative Urine Bilirubin Negative N Negative Urine Glucose Negative N Negative CBC Auto 04/22/2017 [facility] White Blood 13.9 10^3/uL High 3.5-10.[address] [place] [address] [phone] Red Blood Count 3.79 10^6/uL Low 4.0-5.4 Hemoglobin 10.8 g/dL Low 14.0-18.0 Hematocrit 33 % Low 42-52 Mean Corpuscular Volume 87 fL N 80-94 Mean Corpuscular Hemoglobin 29 pg N 27-31 Mean Corpuscular HGB Conc 33 g/dL N 31-36 Red Cell Distribution Width 14 % N 10.5-15 Platelet Count 252 10^3/uL N 150-450 Mean Platelet Volume 9 um3 N 7.4-10.4 Abs Neutrophils 10.1 10^3/uL High 1.5-7.7 Abs Lymphocytes 1.9 10^3/uL N 1.0-4.8 Abs Monocytes 1.7 10^3/uL High 0-0.8 Abs Eosinophils 0.1 10^3/uL N 0-0.6 Abs Basophils 0.1 10^3/uL N 0-0.2 Abs Nucleated RBC 0 10^3/uL N Granulocyte % 73.0 % N 38-83 Lymphocyte % 13.6 % Low 25-47 Monocyte % 12.2 % High 1-9 Eosinophil % 0.6 % N 0-6 Basophil % 0.6 % N 0-2 Nucleated Red Blood Cells % 0 N Laboratory test 04/22/2017 [facility] Lactic Acid 0.7 mmol/L N 0.5-2.0 [address] [place] [address] [phone] Comp Metabolic 04/22/2017 [facility] Sodium 134 mmol/L N 133- [address] [place] [address] [phone] Potassium 4.0 mmol/L N 3.5-5.0 Chloride 100 mmol/L Low 101-111 Co2 Carbon Dioxide 27 mmol/L N 22-32 Anion Gap 7 mmol/L N 2-11 Glucose 95 mg/dL N 70-100 Blood Urea Nitrogen 13 mg/dL N 6-24 Creatinine 0.66 mg/dL Low 0.67-1.17 BUN/Creatinine Ratio 19.7 N 8-20 Calcium 9.6 mg/dL N 8.6-10.3 Total Protein 7.2 g/dL N 6.4-8.9 Albumin 4.1 g/dL N 3.2-5.2 Globulin 3.1 g/dL N 2-4 Albumin/Globulin Ratio 1.3 N 1-3 Total Bilirubin 1.30 mg/dL High 0.2-1.0 Alkaline Phosphatase 61 U/L N 34-104 Alt 115 U/L High 7-52 Ast 142 U/L High 13-39 Egfr Non- 139.9 N >60 Egfr 179.9 N >60 6 CBC Auto Diff 04/14/2017 [facility] White Blood 5.9 10^3/uL N 3.5-10.[address] [place] [address] [phone] Red Blood Count 4.65 10^6/uL N 4.0-5.4 Hemoglobin 13.4 g/dL Low 14.0-18.0 Hematocrit 42 % N 42-52 Mean Corpuscular Volume 90 fL N 80-94 Mean Corpuscular Hemoglobin 29 pg N 27-31 Mean Corpuscular HGB Conc 32 g/dL N 31-36 Red Cell Distribution Width 14 % N 10.5-15 Platelet Count 224 10^3/uL N 150-450 Mean Platelet Volume 9 um3 N 7.4-10.4 Abs Neutrophils 3.2 10^3/uL N 1.5-7.7 Abs Lymphocytes 2.0 10^3/uL N 1.0-4.8 Abs Monocytes 0.6 10^3/uL N 0-0.8 Abs Eosinophils 0.1 10^3/uL N 0-0.6 Abs Basophils 0.1 10^3/uL N 0-0.2 Abs Nucleated RBC 0.01 10^3/uL N Granulocyte % 53.7 % N 38-83 Lymphocyte % 33.7 % N 25-47 Monocyte % 10.2 % High 1-9 Eosinophil % 1.5 % N 0-6 Basophil % 0.9 % N 0-2 Nucleated Red Blood Cells % 0.2 N Laboratory test 04/14/2017 [facility] Erythrocyte Sed 7 mm/Hr N 0-[address] [place] [address] [phone] Lyme Disease Serology Positive N Negative 7 C Reactive Protein 1.54 mg/L N < 5.00 8 Lyme Western 04/14/2017 [facility] Lyme Disease Negative N Negative Blot [address] [place] [address] [phone] Lyme Disease IgG Bands Present No bands detecte <SEE NOTE> kDa N 9 Lyme Disease IgM Ab WB Negative N Negative Lyme Disease IgM Bands Present No bands detecte <SEE NOTE> kDa N 10 Lyme Disease Interpretation See Comment N 11 Laboratory test 10/27/2015 [facility] Point of 89 mg/dL N 74- 106 [address] [place] [address] [phone] Laboratory test 08/01/2015 [facility] Point of 72 mg/dL Low 74 -106 [address] [place] [address] [phone] CBC Auto Diff 10/15/2014 White Blood 6.9 N 4.8-10.8 14 Count 10^3/uL Red Blood Count 3.81 10^6/uL Low 4.0-5.4 Hemoglobin 10.9 g/dL Low 14.0-18.0 Hematocrit 34 % Low 42-52 Mean Corpuscular Volume 88 fL N 80-94 Mean Corpuscular Hemoglobin 29 pg N 27-31 Mean Corpuscular HGB Conc 33 g/dL N 31-36 Red Cell Distribution Width 16 % High 10.5-15 Platelet Count 310 10^3/uL N 150-450 Mean Platelet Volume 9 um3 N 7.4-10.4 Abs Neutrophils 4.7 10^3/uL N 1.5-7.7 Abs Lymphocytes 1.4 10^3/uL N 1.0-4.8 Abs Monocytes 0.6 10^3/uL N 0-0.8 Abs Eosinophils 0.1 10^3/uL N 0-0.6 Abs Basophils 0.1 10^3/uL N 0-0.2 Abs Nucleated RBC 0 10^3/uL N Granulocyte % 68.1 % N 38-83 Lymphocyte % 20.7 % Low 25-47 Monocyte % 8.3 % N 1-9 Eosinophil % 2.1 % N 0-6 Basophil % 0.8 % N 0-2 Nucleated Red Blood Cells % 0 N Lipid Profile (Trig/Chol/HDL) 10/15/2014 Triglycerides 70 mg/dL N 15 Cholesterol 144 mg/dL N 16 HDL Cholesterol 42.7 mg/dL N 17 LDL Cholesterol 87 mg/dL N 18 Comp Metabolic Panel 10/06/2014 [facility] Sodium 140 mmol/L N 133-145 [address] [place] [address] [phone] Potassium 4.2 mmol/L N 3.5-5.0 Chloride 107 mmol/L N 101-111 Co2 Carbon Dioxide 29 mmol/L N 22-32 Anion Gap 4 mmol/L N 2-11 Glucose 82 mg/dL N 70-100 Blood Urea Nitrogen 19 mg/dL N 6-24 Creatinine 0.75 mg/dL N 0.67-1.17 BUN/Creatinine Ratio 25.3 High 8-20 Calcium 9.5 mg/dL N 8.6-10.3 Total Protein 7.0 g/dL N 6.4-8.9 Albumin 4.1 g/dL N 3.2-5.2 Globulin 2.9 g/dL N 2-4 Albumin/Globulin Ratio 1.4 N 1-3 Total Bilirubin 1.00 mg/dL N 0.2-1.0 Alkaline Phosphatase 47 U/L N 34-104 Alt 10 U/L N 7-52 Ast 15 U/L N 13-39 Egfr Non- 123.1 N >60 Egfr 158.3 N >60 19 Laboratory test 10/06/2014 [facility] Activated 37.2 High 24.0 -36.[address] [place] [address] Thrombo Time [phone] Inr/Protime 10/06/2014 [facility] Inr 0.97 N 0.85-1.[address] [place] [address] [phone] CBC Auto Diff 10/06/2014 [facility] White Blood 8.2 10^3/uL N 4.8-10.[address] [place] [address] [phone] Red Blood Count 3.76 10^6/uL Low 4.0-5.4 Hemoglobin 10.8 g/dL Low 14.0-18.0 Hematocrit 33 % Low 42-52 Mean Corpuscular Volume 87 fL N 80-94 Mean Corpuscular Hemoglobin 29 pg N 27-31 Mean Corpuscular HGB Conc 33 g/dL N 31-36 Red Cell Distribution Width 15 % N 10.5-15 Platelet Count 357 10^3/uL N 150-450 Mean Platelet Volume 8 um3 N 7.4-10.4 Abs Neutrophils 6.3 10^3/uL N 1.5-7.7 Abs Lymphocytes 1.3 10^3/uL N 1.0-4.8 Abs Monocytes 0.5 10^3/uL N 0-0.8 Abs Eosinophils 0.1 10^3/uL N 0-0.6 Abs Basophils 0.1 10^3/uL N 0-0.2 Abs Nucleated RBC 0 10^3/uL N Granulocyte % 76.5 % N 38-83 Lymphocyte % 15.7 % Low 25-47 Monocyte % 6.2 % N 1-9 Eosinophil % 1.0 % N 0-6 Basophil % 0.6 % N 0-2 Nucleated Red Blood Cells % 0 N Laboratory test 10/20/2012 [facility] D Dimer < 200 Less [address] Quantitative ng/mL Than [address] [place] [address] [phone] International 07/14/2012 [facility] Inr 0.92 0.88-1.1 21 Normalized Ratio [address] [place] [address] [phone] Protime 10.9 SEC 10.3-13.5 22 Basic Metabolic

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
[2019-01-06 19:59] VITALS: BP 149/109
== END 2019-01-06 19:59 | disposition home or self-care (01) ==
LOC: ED 16:53
DX: S60.512A Abrasion of left hand, initial encounter (principal); S60.511A Abrasion of right hand, initial encounter; S80.212A Abrasion, left knee, initial encounter; S00.81XA Abrasion of other part of head, initial encounter; S00.83XA Contusion of other part of head, initial encounter; M25.541 Pain in joints of right hand; W01.0XXA Fall on same level from slipping, tripping and stumbling without subsequent striking against object, initial encounter; Y92.480 Sidewalk as the place of occurrence of the external cause; Z87.820 Personal history of traumatic brain injury; Z86.718 Personal history of other venous thrombosis and embolism; Z79.01 Long term (current) use of anticoagulants; Z88.2 Allergy status to sulfonamides; Z87.891 Personal history of nicotine dependence
CPT/HCPCS: 70450; 70486; 99281

== ENCOUNTER 2019-02-06 17:07 | Emergency (ER) | payer OTHER ==
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
[2019-02-06 22:56] VITALS: BP 139/88
== END 2019-02-06 22:56 | disposition home or self-care (01) ==
LOC: ED 17:07
DX: S02.2XXA Fracture of nasal bones, initial encounter for closed fracture (principal); W01.0XXA Fall on same level from slipping, tripping and stumbling without subsequent striking against object, initial encounter; I73.9 Peripheral vascular disease, unspecified; F17.210 Nicotine dependence, cigarettes, uncomplicated; Z88.2 Allergy status to sulfonamides; Z79.01 Long term (current) use of anticoagulants; Z86.718 Personal history of other venous thrombosis and embolism; Z98.1 Arthrodesis status
CPT/HCPCS: 70450; 70486; 99282

== ENCOUNTER 2019-05-20 13:40 | Emergency (ER) | payer OTHER ==
[2019-05-20] MEDS ORDERED: Clindamycin 600 MG IVPREMIX(* 600 MG in PREMIX* 0 ML IV ONE (15:07)
[2019-05-20 15:35] LABS: ABS Basophils 0.1 10^3/ul (0-0.2); ABS Eosinophils 0.1 10^3/ul (0-0.6); ABS Lymphocytes 1.7 10^3/ul (1.0-4.8); ABS Monocytes 0.8 10^3/ul (0-0.8); ABS Neutrophils 7.1 10^3/ul (1.5-7.7); Eosinophil % 1.3 %; Hematocrit 39 % (42-52); Lymphocyte % 17.5 %; Mean Corpuscular HGB Conc 34 g/dL (31-36); Mean Corpuscular Hemoglobin 29 pg (27-31); Mean Corpuscular Volume 85 fL (80-94); Mean Platelet Volume 8.3 fL (7.4-10.4); Platelet Count 308 10^3/uL (150-450); Red Blood Count 4.51 10^6 /uL (4.18-5.48); Red Cell Distribution Width 15 % (10-15); White Blood Count 9.9 10^3/uL (3.5-10.8)
[2019-05-20 15:40] LABS: INR 1.07 (0.82-1.09)
[2019-05-20 15:44] LABS: Albumin 4.7 g/dL (3.2-5.2); Albumin/Globulin Ratio 1.4 (1-3); BUN/Creatinine Ratio 18.9 (8-20); C Reactive Protein 59.51 mg/L (<8.01); Calcium 10.1 mg/dL (8.6-10.3); EGFR African American 109.8 (>60); EGFR Non-African American 90.8 (>60); Globulin 3.3 g/dL (2-4); Potassium 4.1 mmol/L (3.5-5.0); Total Bilirubin 0.9 mg/dL (0.2-1.0)
[2019-05-20] MEDS ORDERED: Clindamycin 600 MG IVPREMIX(* 600 MG/50 ML SDV ONE (15:45)
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
--- OUTSIDE RECORDS SUMMARY | 2019-05-20 16:48 | XMS REPORT | Continuity of Care Document ---
:1985 External Reference #:[id number] Author Name Yudi Adams Care Team Providers Name Role Phone Garcia Palomares III, MD Primary Care Physician Unavailable Payers Date Identification Numbers Payment Provider Subscriber Effective: 2013 Policy Number: [id number] [place] [facility] [place] Group Number: [id number] [address] PayID: [id number] [place] [address] Expires: 2013 Policy Number: [id number] [place] [employer] Jayesh Stern [place] PayID: [id number] [address] [address] [place] [address] Effective: 1998 Policy Number: [id number] [employer] Nancy Stern [place] Expires: 2018 PayID: [id number] [address] [place] [address] Effective: 1997 Policy Number: [id number] [facility] Anand Farnsworth [place] Expires: 1998 Group Number: [id number] [address] [address] PayID: [id number] [place] [id number] Problems Active Problems Provider Date Traumatic brain injury Garcia Palomares M.D. Onset: 03/20/2012 Abnormal gait Garcia Palomares M.D. Onset: 09/20/2013 Postthrombotic syndrome Marquis Meyer M.D. Onset: 11/08/2018 Family History Date Family Member(s) Observation Comments General Multiple Sclerosis (MS) Father due to (+) MS () - age 57 Social History Type Date Description Comments Sex Unknown Marital Status Single Lives With Family Occupation Student Tobacco Use Start: Unknown End: Former Cigarette Smoker Unknown Tobacco Use Start: Unknown Patient is a current cigar smoker, smokes every day Tobacco Use Start: Unknown Patient is a current pipe smoker, smokes every day Smokeless Tobacco Never Used Smokeless Tobacco ETOH Use Occasionally consumes alcohol Recreational Drug Use occ marijuana Tobacco Use Start: Unknown Patient is a current smoker, smokes every day Smoking Status Reviewed: 05/18/19 Patient is a current smoker, smokes every day Exercise Type/Frequency Exercises sporadically walks on occ Allergies, Adverse Reactions, Alerts Active Allergies Reaction Severity Comments Date Sulfa not sure - was an 03/20/2012 Medications Active Medications SIG Qnty Indications Ordering Provider Date Cephalexin take one tablet 40tabs L03.115 Henri Valencia NP 05/18/2019 500mg every 6 hours Tablets for 10 days Xarelto 1 by mouth every 90tabs I82.492 Garcia Palomares, 02/01/2018 20mg Tablets day M.D. Lisinopril 1 by mouth every 30tabs Garcia Palomares, 10mg Tablets day M.D. History Medications Oxycodone-Acetaminophen 1--2 tab by mouth 14tabs Elo Saenz 07/13/2018 - 5-325mg every 4- 6 hours as MD Galdino Unknown Tablets needed for pain Augmentin one tablet twice a 20tabs K43.2 Andi S. 06/27/2018 - 875-125mg Tablets day for 10 days Che Peoples MD Xarelto 1 by mouth twice a 42tabs I82.4 Garcia Noriega 01/04/2018 - 15mg Tablets day Marielle 02/01/2018 MDany Xarelto 1 by mouth every 90tabs I82.4 Garcia Noriega 05/24/2017 - 20mg Tablets day Marielle, 01/03/2018 M.DKim Ciprofloxacin HCL one by nouth twice 14tabs Garcia Noriega 04/26/2017 - 250mg Tablets daily for 7 days Marielle 07/07/2017 MDany Hydrocodone-Acetaminophen 1-2 tabs up to 4 40tabs Garcia Noriega 04/22/2017 - 5-325mg itmes a day as Marielle, 07/13/2017 Tablets needd Wilver Tramadol HCL 1-2 tablets every 6 40tabs M25.5 Garcia Noriega 04/20/2017 - 50mg Tablets hours as needed 52 Marielle, 07/14/2017 Wilver Xarelto 1 by mouth twice a 42tabs I82.4 Garcia Noriega 04/20/2017 - 15mg Tablets day Marielle, 05/24/2017 Wilver Lovenox SQ bid 30ml Marilee 04/14/2017 - 100mg/ml Solution Presley, 04/22/2017 Wilver Doxycycline Hyclate 1 by mouth twice a 28caps L03.1 Garcia Noriega 04/07/2017 - 100mg Capsules day Marielle, 04/20/2017 Wilver No Active Medications Unknown 07/30/2016 - 04/07/2017 No Active Medications Unknown 12/04/2012 - 06/20/2015 Lovenox On Hold. 1 60units Garcia Noriega - 100mg/ml Solution subcutaneously q12h Marielle, 12/04/2012 as directed Wilver Benefiber Unknown - Powder Unknown Clindamycin HCL 1 tabs by mouth 3 Unknown - 300mg Capsules times a day 10/24/2017 Lovenox 1 subcutaneously Unknown - 100mg/ml Solution every 12 hours as Unknown directed Oxycodone-Acetaminophen take 1 tablet by Unknown - 5-325mg mouth every 3 hours Unknown Tablets if needed for Stronger pain Immunizations CPT Code Status Date Vaccine Lot # [id number] Given 05/31/2014 Tdap - Tetanus/Diptheria/Acellular Pertussis [id number] Given 01/29/2014 Meningitis MCV4 MenACWY Meningococcal Conjugate Vaccine 00052 Given 01/29/2014 Meningitis MCV4 MenACWY Meningococcal Conjugate [id number] Vaccine 20480 Given 04/06/1999 Tetanus And Diptheria (Td) For Adult Use Preservative Free 00542 Given Unknown Tetanus And Diptheria (Td) For Adult Use Preservative Free [id number] Refused 07/07/2012 Fluzone Vaccine Vital Signs Date Vital Result Comment 05/18/2019 10:31am Height 66 inches 5'6" Weight 207.38 lb Heart Rate 80 /min BP Systolic 124 mmHg BP Diastolic 76 mmHg Body Temperature 97.5 F O2 % BldC Oximetry 99 % BMI (Body Mass Index) 33.5 kg/m2 04/17/2019 11:43am Height 66 inches 5'6" Weight 206.00 lb Heart Rate 81 /min BP Systolic Sitting 124 mmHg BP Diastolic Sitting 70 mmHg BMI (Body Mass Index) 33.2 kg/m2 01/04/2019 3:52pm Height 66 inches 5'6" Weight 210.50 lb Heart Rate 55 /min BP Systolic 126 mmHg BP Diastolic 79 mmHg Body Temperature 97.0 F O2 % BldC Oximetry 99 % BMI (Body Mass Index) 34.0 kg/m2 11/08/2018 10:24am Height 66 inches 5'6" Weight [...] Result H/L Range Note Platelet Count 07/17/2018 [facility] Platelet Count 243 10^3/uL Normal 150-[address] [place] [address] [phone] Mean Platelet Volume 8.3 um3 Normal 7.4-10.4 Inr/Protime 07/17/2018 [facility] Inr 0.97 Normal 0.77-1.[address] [place] [address] [phone] Laboratory test 07/17/2018 [facility] Partial 35.1 Normal 26.0 -36.[address] [place] [address] Time PTT [phone] CBC Auto Diff 04/28/2018 [facility] White Blood 6.6 10^3/uL Normal 3.5-10.8 [place] [address] [phone] Red Blood Count 4.92 10^6/uL Normal 4.00-5.40 Hemoglobin 14.5 g/dL Normal 14.0-18.0 Hematocrit 42 % Normal 42-52 Mean Corpuscular Volume 86 fL Normal 80-94 Mean Corpuscular Hemoglobin 29 pg Normal 27-31 Mean Corpuscular HGB Conc 34 g/dL Normal 31-36 Red Cell Distribution Width 15 % Normal 10.5-15 Platelet Count 216 10^3/uL Normal 150-450 Mean Platelet Volume 9.0 um3 Normal 7.4-10.4 Abs Neutrophils 3.4 10^3/uL Normal 1.5-7.7 Abs Lymphocytes 2.3 10^3/uL Normal 1.0-4.8 Abs Monocytes 0.6 10^3/uL Normal 0-0.8 Abs Eosinophils 0.2 10^3/uL Normal 0-0.6 Abs Basophils 0.1 10^3/uL Normal 0-0.2 Abs Nucleated RBC 0 10^3/uL Granulocyte % 51.8 % Normal 38-83 Lymphocyte % 35.3 % Normal 25-47 Monocyte % 8.4 % High 0-7 Eosinophil % 3.6 % Normal 0-6 Basophil % 0.9 % Normal 0-2 Nucleated Red Blood Cells % 0.1 Basic Metabolic 04/28/2018 [facility] Sodium 142 mmol/L Normal 135-[address] [place] [address] [phone] Potassium 4.1 mmol/L Normal 3.5-5.0 Chloride 109 mmol/L Normal 101-111 Co2 Carbon Dioxide 26 mmol/L Normal 22-32 Anion Gap 7 mmol/L Normal 2-11 Glucose 96 mg/dL Normal 70-100 Blood Urea Nitrogen 21 mg/dL Normal 6-24 Creatinine 0.74 mg/dL Normal 0.67-1.17 BUN/Creatinine Ratio 28.4 High 8-20 Calcium 9.6 mg/dL Normal 8.6-10.3 Egfr Non- 121.8 >60 Egfr 147.4 >60 1 CBC Auto 01/02/2018 [facility] White Blood 6.5 10^3/uL Normal 3.5-10.[address] [place] [address] [phone] Red Blood Count 4.68 10^6/uL Normal 4.0-5.4 Hemoglobin 13.5 g/dL Low 14.0-18.0 Hematocrit 40 % Low 42-52 Mean Corpuscular Volume 86 fL Normal 80-94 Mean Corpuscular Hemoglobin 29 pg Normal 27-31 Mean Corpuscular HGB Conc 34 g/dL Normal 31-36 Red Cell Distribution Width 14 % Normal 10.5-15 Platelet Count 245 10^3/uL Normal 150-450 Mean Platelet Volume 8 um3 Normal 7.4-10.4 Abs Neutrophils 3.7 10^3/uL Normal 1.5-7.7 Abs Lymphocytes 2.1 10^3/uL Normal 1.0-4.8 Abs Monocytes 0.6 10^3/uL Normal 0-0.8 Abs Eosinophils 0.1 10^3/uL Normal 0-0.6 Abs Basophils 0.1 10^3/uL Normal 0-0.2 Abs Nucleated RBC 0 10^3/uL Granulocyte % 56.4 % Normal 38-83 Lymphocyte % 32.5 % Normal 25-47 Monocyte % 8.6 % High 0-7 Eosinophil % 1.6 % Normal 0-6 Basophil % 0.9 % Normal 0-2 Nucleated Red Blood Cells % 0 Inr/Protime 01/02/2018 [facility] Inr 0.91 Normal 0.77-1.[address] [place] [address] [phone] Laboratory test 01/02/2018 [facility] Partial 33.5 Normal 26.0 -36.3 finding [facility] [place] [address] Time PTT [phone] Comp Metabolic 01/02/2018 [facility] Sodium 138 mmol/L Normal 133-[address] [place] [address] [phone] Potassium 4.3 mmol/L Normal 3.5-5.0 Chloride 105 mmol/L Normal 101-111 Co2 Carbon Dioxide 26 mmol/L Normal 22-32 Anion Gap 7 mmol/L Normal 2-11 Glucose 97 mg/dL Normal 70-100 Blood Urea Nitrogen 13 mg/dL Normal 6-24 Creatinine 0.75 mg/dL Normal 0.67-1.17 BUN/Creatinine Ratio 17.3 Normal 8-20 Calcium 9.8 mg/dL Normal 8.6-10.3 Total Protein 7.1 g/dL Normal 6.4-8.9 Albumin 4.5 g/dL Normal 3.2-5.2 Globulin 2.6 g/dL Normal 2-4 Albumin/Globulin Ratio 1.7 Normal 1-3 Total Bilirubin 0.80 mg/dL Normal 0.2-1.0 Alkaline Phosphatase 68 U/L Normal 34-104 Alt 15 U/L Normal 7-52 Ast 19 U/L Normal 13-39 Egfr Non- 120.7 >60 Egfr 155.2 >60 2 CBC Auto 10/26/2017 [facility] White Blood 7.1 10^3/uL Normal 3.5-10.[address] [place] [address] [phone] Red Blood Count 4.78 10^6/uL Normal 4.0-5.4 Hemoglobin 13.6 g/dL Low 14.0-18.0 Hematocrit 41 % Low 42-52 Mean Corpuscular Volume 85 fL Normal 80-94 Mean Corpuscular Hemoglobin 28 pg Normal 27-31 Mean Corpuscular HGB Conc 34 g/dL Normal 31-36 Red Cell Distribution Width 16 % High 10.5-15 Platelet Count 238 10^3/uL Normal 150-450 Mean Platelet Volume 8 um3 Normal 7.4-10.4 Abs Neutrophils 5.3 10^3/uL Normal 1.5-7.7 Abs Lymphocytes 0.8 10^3/uL Low 1.0-4.8 Abs Monocytes 0.7 10^3/uL Normal 0-0.8 Abs Eosinophils 0.1 10^3/uL Normal 0-0.6 Abs Basophils 0.1 10^3/uL Normal 0-0.2 Abs Nucleated RBC 0 10^3/uL Granulocyte % 75.7 % Normal 38-83 Lymphocyte % 11.8 % Low 25-47 Monocyte % 10.3 % High 1-9 Eosinophil % 1.4 % Normal 0-6 Basophil % 0.8 % Normal 0-2 Nucleated Red Blood Cells % 0 CBC Auto 05/04/2017 [facility] White Blood 8.0 10^3/uL Normal 3.5-10.[address] [place] [address] [phone] Red Blood Count 3.83 10^6/uL Low 4.0-5.4 Hemoglobin 11.1 g/dL Low 14.0-18.0 Hematocrit 34 % Low 42-52 Mean Corpuscular Volume 89 fL Normal 80-94 Mean Corpuscular Hemoglobin 29 pg Normal 27-31 Mean Corpuscular HGB Conc 33 g/dL Normal 31-36 Red Cell Distribution Width 15 % Normal 10.5-15 Platelet Count 760 10^3/uL High 150-450 Mean Platelet Volume 8 um3 Normal 7.4-10.4 Abs Neutrophils 5.3 10^3/uL Normal 1.5-7.7 Abs Lymphocytes 1.8 10^3/uL Normal 1.0-4.8 Abs Monocytes 0.7 10^3/uL Normal 0-0.8 Abs Eosinophils 0.2 10^3/uL Normal 0-0.6 Abs Basophils 0.1 10^3/uL Normal 0-0.2 Abs Nucleated RBC 0 10^3/uL Normal Granulocyte % 66.7 % Normal 38-83 Lymphocyte % 22.0 % Low 25-47 Monocyte % 8.5 % Normal 1-9 Eosinophil % 1.9 % Normal 0-6 Basophil % 0.9 % Normal 0-2 Nucleated Red Blood Cells % 0 Normal Liver Function 05/04/2017 [facility] Total Protein 7.1 g/dL Normal 6.4-8.[address] [place] [address] [phone] Albumin 4.1 g/dL Normal 3.2-5.2 Globulin 3.0 g/dL Normal 2-4 Albumin/Globulin Ratio 1.4 Normal 1-3 Total Bilirubin 1.40 mg/dL High 0.2-1.0 Direct Bilirubin 0.20 mg/dL High 0.03-0.18 Indirect Bilirubin 1.2 mg/dL High 0.3-1.0 Alkaline Phosphatase 79 U/L Normal 34-104 Alt 34 U/L Normal 7-52 Ast 22 U/L Normal 13-39 Urine Culture And 04/27/2017 [facility] Urine SEE RESULT 3 , [address] [place] [place] [address] [phone] Urinalysis Profile 04/27/2017 [facility] Urine Color Yellow Normal [address] [place] [address] [phone] Urine Appearance Clear Normal Urine Specific Leslie 1.011 Normal 1.010-1.030 Urine pH 6.0 Normal 5-9 Urine Urobilinogen Negative Normal Negative Urine Ketones Negative Normal Negative Urine Protein Negative Normal Negative Urine Leukocytes Negative Normal Negative Urine Blood Negative Normal Negative Urine Nitrite Negative Normal Negative Urine Bilirubin Negative Normal Negative Urine Glucose Negative Normal Negative CBC Auto 04/22/2017 [facility] White Blood 13.9 10^3/uL High 3.5-10.[address] [place] [address] [phone] Red Blood Count 3.79 10^6/uL Low 4.0-5.4 Hemoglobin 10.8 g/dL Low 14.0-18.0 Hematocrit 33 % Low 42-52 Mean Corpuscular Volume 87 fL Normal 80-94 Mean Corpuscular Hemoglobin 29 pg Normal 27-31 Mean Corpuscular HGB Conc 33 g/dL Normal 31-36 Red Cell Distribution Width 14 % Normal 10.5-15 Platelet Count 252 10^3/uL Normal 150-450 Mean Platelet Volume 9 um3 Normal 7.4-10.4 Abs Neutrophils 10.1 10^3/uL High 1.5-7.7 Abs Lymphocytes 1.9 10^3/uL Normal 1.0-4.8 Abs Monocytes 1.7 10^3/uL High 0-0.8 Abs Eosinophils 0.1 10^3/uL Normal 0-0.6 Abs Basophils 0.1 10^3/uL Normal 0-0.2 Abs Nucleated RBC 0 10^3/uL Normal Granulocyte % 73.0 % Normal 38-83 Lymphocyte % 13.6 % Low 25-47 Monocyte % 12.2 % High 1-9 Eosinophil % 0.6 % Normal 0-6 Basophil % 0.6 % Normal 0-2 Nucleated Red Blood Cells % 0 Normal Laboratory test 04/22/2017 [facility] Lactic Acid 0.7 mmol/L Normal 0.5-2.0 5 [address] [place] [address] [phone] Comp Metabolic 04/22/2017 [facility] Sodium 134 mmol/L Normal 133-145 Panel [address] [place] [address] [phone] Potassium 4.0 mmol/L Normal 3.5-5.0 Chloride 100 mmol/L Low 101-111 Co2 Carbon Dioxide 27 mmol/L Normal 22-32 Anion Gap 7 mmol/L Normal 2-11 Glucose 95 mg/dL Normal 70-100 Blood Urea Nitrogen 13 mg/dL Normal 6-24 Creatinine 0.66 mg/dL Low 0.67-1.17 BUN/Creatinine Ratio 19.7 Normal 8-20 Calcium 9.6 mg/dL Normal 8.6-10.3 Total Protein 7.2 g/dL Normal 6.4-8.9 Albumin 4.1 g/dL Normal 3.2-5.2 Globulin 3.1 g/dL Normal 2-4 Albumin/Globulin Ratio 1.3 Normal 1-3 Total Bilirubin 1.30 mg/dL High 0.2-1.0 Alkaline Phosphatase 61 U/L Normal 34-104 Alt 115 U/L High 7-52 Ast 142 U/L High 13-39 Egfr Non- 139.9 Normal >60 Egfr 179.9 Normal >60 6 CBC Auto 04/14/2017 [facility] White Blood 5.9 10^3/uL Normal 3.5-10.[address] [place] [address] [phone] Red Blood Count 4.65 10^6/uL Normal 4.0-5.4 Hemoglobin 13.4 g/dL Low 14.0-18.0 Hematocrit 42 % Normal 42-52 Mean Corpuscular Volume 90 fL Normal 80-94 Mean Corpuscular Hemoglobin 29 pg Normal 27-31 Mean Corpuscular HGB Conc 32 g/dL Normal 31-36 Red Cell Distribution Width 14 % Normal 10.5-15 Platelet Count 224 10^3/uL Normal 150-450 Mean Platelet Volume 9 um3 Normal 7.4-10.4 Abs Neutrophils 3.2 10^3/uL Normal 1.5-7.7 Abs Lymphocytes 2.0 10^3/uL Normal 1.0-4.8 Abs Monocytes 0.6 10^3/uL Normal 0-0.8 Abs Eosinophils 0.1 10^3/uL Normal 0-0.6 Abs Basophils 0.1 10^3/uL Normal 0-0.2 Abs Nucleated RBC 0.01 10^3/uL Normal Granulocyte % 53.7 % Normal 38-83 Lymphocyte % 33.7 % Normal 25-47 Monocyte % 10.2 % High 1-9 Eosinophil % 1.5 % Normal 0-6 Basophil % 0.9 % Normal 0-2 Nucleated Red Blood Cells % 0.2 Normal Laboratory test 04/14/2017 [facility] Erythrocyte Sed 7 mm/Hr Normal 0-[address] [place] [address] [phone] Lyme Disease Serology Positive Normal Negative 7 C Reactive Protein 1.54 mg/L Normal < 5.00 8 Lyme Western 04/14/2017 [facility] Lyme Disease Negative Normal Negative Blot [address] [place] [address] [phone] Lyme Disease IgG Bands Present No bands detecte <SEE NOTE> kDa Normal 9 Lyme Disease IgM Ab WB Negative Normal Negative Lyme Disease IgM Bands Present No bands detecte <SEE NOTE> kDa Normal 10 Lyme Disease Interpretation See Comment Normal 11 Laboratory 10/27/2015 [facility] Point of Care 89 mg/dL Normal 74-106 12 test finding [address] [place] [address] [phone] Laboratory 08/01/2015 [facility] Point of Care 72 mg/dL Low 74 -106 13 test finding [address] [place] [address] [phone] Lipid Profile 10/15/2014 Triglycerides 70 mg/dL Normal 14, (Trig/Chol/HDL 15 ) Cholesterol 144 mg/dL Normal 16 HDL Cholesterol 42.7 mg/dL Normal 17 LDL Cholesterol 87 mg/dL Normal 18 CBC Auto Diff 10/15/2014 White Blood Count 6.9 10^3/uL Normal 4.8-10.8 Red Blood Count 3.81 10^6/uL Low 4.0-5.4 Hemoglobin 10.9 g/dL Low 14.0-18.0 Hematocrit 34 % Low 42-52 Mean Corpuscular Volume 88 fL Normal 80-94 Mean Corpuscular Hemoglobin 29 pg Normal 27-31 Mean Corpuscular HGB Conc 33 g/dL Normal 31-36 Red Cell Distribution Width 16 % High 10.5-15 Platelet Count 310 10^3/uL Normal 150-450 Mean Platelet Volume 9 um3 Normal 7.4-10.4 Abs Neutrophils 4.7 10^3/uL Normal 1.5-7.7 Abs Lymphocytes 1.4 10^3/uL Normal 1.0-4.8 Abs Monocytes 0.6 10^3/uL Normal 0-0.8 Abs Eosinophils 0.1 10^3/uL Normal 0-0.6 Abs Basophils 0.1 10^3/uL Normal 0-0.2 Abs Nucleated RBC 0 10^3/uL Normal Granulocyte % 68.1 % Normal 38-83 Lymphocyte % 20.7 % Low 25-47 Monocyte % 8.3 % Normal 1-9 Eosinophil % 2.1 % Normal 0-6 Basophil % 0.8 % Normal 0-2 Nucleated Red Blood Cells % 0 Normal Laboratory 10/06/2014 [facility] Activated 37.2 High 24.0- 36.1 test finding [address] [place] [address] Thrombo Time [phone] Comp Metabolic 10/06/2014 [facility] Sodium 140 mmol/L Normal 133-145 Panel [address] [place] [address] [phone] Potassium 4.2 mmol/L Normal 3.5-5.0 Chloride 107 mmol/L Normal 101-111 Co2 Carbon Dioxide 29 mmol/L Normal 22-32 Anion Gap 4 mmol/L Normal 2-11 Glucose 82 mg/dL Normal 70-100 Blood Urea Nitrogen 19 mg/dL Normal 6-24 Creatinine 0.75 mg/dL Normal 0.67-1.17 BUN/Creatinine Ratio 25.3 High 8-20 Calcium 9.5 mg/dL Normal 8.6-10.3 Total Protein 7.0 g/dL Normal 6.4-8.9 Albumin 4.1 g/dL Normal 3.2-5.2 Globulin 2.9 g/dL Normal 2-4 Albumin/Globulin Ratio 1.4 Normal 1-3 Total Bilirubin 1.00 mg/dL Normal 0.2-1.0 Alkaline Phosphatase 47 U/L Normal 34-104 Alt 10 U/L Normal 7-52 Ast 15 U/L Normal 13-39 Egfr Non- 123.1 Normal >60 Egfr 158.3 Normal >60 19 Inr/Protime 10/06/2014 [facility] Inr 0.97 Normal 0.85-1.06 [address] [place] [address] [phone] CBC Auto Diff 10/06/2014 [facility] White Blood 8.2 Normal 4.8 -10.[address] Count 10^3/[place] [address] [phone] Red Blood Count 3.76 10^6/uL Low 4.0-5.4 Hemoglobin 10.8 g/dL Low 14.0-18.0 Hematocrit 33 % Low 42-52 Mean Corpuscular Volume 87 fL Normal 80-94 Mean Corpuscular Hemoglobin 29 pg Normal 27-31 Mean Corpuscular HGB Conc 33 g/dL Normal 31-36 Red Cell Distribution Width 15 % Normal 10.5-15 Platelet Count 357 10^3/uL Normal 150-450 Mean Platelet Volume 8 um3 Normal 7.4-10.4 Abs Neutrophils 6.3 10^3/uL Normal 1.5-7.7 Abs Lymphocytes 1.3 10^3/uL Normal 1.0-4.8 Abs Monocytes 0.5 10^3/uL Normal 0-0.8 Abs Eosinophils 0.1 10^3/uL Normal 0-0.6 Abs Basophils 0.1 10^3/uL Normal 0-0.2 Abs Nucleated RBC 0 10^3/uL Normal Granulocyte % 76.5 % Normal 38-83 Lymphocyte % 15.7 % Low 25-47 Monocyte % 6.2 % Normal 1-9 Eosinophil % 1.0 % Normal 0-6 Basophil % 0.6 % Normal 0-2 Nucleated Red Blood Cells % 0 Normal Laboratory test 10/20/2012 [facility] D Dimer < 200 Less 20 finding [address] [facility] Quantitative ng/mL Than [address] [place] [address] [phone] Basic Metabolic 07/14/2012 [facility] Sodium 141 mmol/L 135- 145 Panel [address] [place] [address] [phone] Potassium 5.0 mmol/L 3.5-5.0 Chloride 108 mmol/L 101-111 Co2 (Carbon Dioxide) 24.0 mmol/L 22-32 Anion Gap 9.0 mmol/L 2-11 21 Glucose 94 mg/dL 70-100 BUN 14 mg/dL 6-24 Creatinine 0.8 mg/dL 0.50-1.40 One Over Creatinine 1.25 BUN/Creatinine Ratio 17.5 8-20 Calcium 9.5 mg/dL 8.1-9.9 eGFR Non- 116.0 > 60 eGFR 149.1 > 60 22 International Normalized 07/14/2012 [facility] Inr 0.92 0.88- 1.13 23 Ratio [address] [place] [address] [phone] Protime 10.9 SEC 10.3-13.5 24 1 Because ethnic data is not [...] 5 Kidney failure <15 (or dialysis) 3 [id number] 4 SEE RESULT BELOW Name: JAYESH LOVE : [address]: Marilee Sherwood MD Acct: [id number] Unit: [id number] AGE: 32 Location: [facility] Re04/27/17 SEX: M Status: REG REF SPEC: [id number] HUNG: 04/27/17 [facility] [address]: Marilee Sherwood MD REQ: [id number] RECD: 04/27/17 STATUS: JASON RAJAN DR: Garcia Palomares III, MD _ SOURCE: URINE SPDESC: ORDERED: Urine Culture COMMENTS: [id number] Urine Source: Random Procedure Result Reported Site Urine Culture Final 04/28/17- 1331 ML No Growth (<1,000 CFU/mL) * ML - MAIN LAB ([facility]) . END OF REPORT * ML=Testing performed at Main Lab DEPARTMENT OF PATHOLOGY, [address] [place] [address] Eric Matthews M.D. Director [facility] # [id number] 5 [facility] Severe Sepsis and Septic Shock [...] testing ordered by reflex. Test Performed by: [place] [id number] Acute inflammation: >10.00 9 No bands [...] screening test (e.g., EIA). Test Performed by: [address] [address] 12 Microphone Operator: TIMI ZAVALA 13 Microphone Operator: TIMI ZAVALA 14 PT IS FASTING 15 [...] - FDP greater than 20 ug/ml 21 Anion gap measurement may be of [...] 15-29 5 Kidney failure <15 (or dialysis) 23 Recommended INR for Patients on Oral Anticoagulants Prophylaxis 2.0 - 3.0 Treatment of thrombosis 2.0 - 3.0 Prevention of embolism 2.0 - 3.0 Prevention of embolism from prosthetic heart valves 2.5 - 3.5 24 DIAGNOSIS,TREATMENT,AND THERAPY MUST BE BASED ON THE INR VALUE ALONE. Procedures Date Code Description Status 01/04/2019 83703 Remove Impacted Cerumen Completed 06/15/2018 82136 EKG, Interpretation Only Completed 06/14/2018 55824 Suture Abdominal Wall 2Ndy Completed 06/14/2018 74147 Suture Abdominal Wall 2Ndy Completed 06/13/2018 32384 EKG, Interpretation Only Completed 06/12/2018 79686 Implant For Incisional/Ventral Hernia Repair Completed 06/12/2018 91428 Implant For Incisional/Ventral Hernia Repair Completed 06/12/2018 48849 Repair Hernia Incisional/Ventral Initial, Reducible Completed 06/12/2018 79921 Repair Hernia Incisional/Ventral Initial, Reducible Completed 06/12/2018 42209 Muscle-Skin Graft Trunk Completed 06/12/2018 61142 Muscle-Skin Graft Trunk Completed 06/12/2018 75051 Muscle-Skin Graft Trunk Completed 06/12/2018 05065 Muscle-Skin Graft Trunk Completed 04/26/2018 27509 EKG Tracing & Interpretation Completed 04/22/2017 17158 EKG, Interpretation Only Completed 01/14/2015 89823 Remove Impacted Cerumen Completed Encounters Type Date Location Provider Dx Diagnosis Office Visit 11/08/2018 [facility] Lance 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 w/o complications of bilateral low extrm Office Visit 10/24/2018 [facility] And[facility] Lu K43.2 Incisional hernia 10:00a [facility] MD without obstruction or gangrene Office Visit 10/06/2018 Angel Noriega R20.2 Paresthesia of skin 10:00a Wilver ChowdhuryDarriusoo d Z86.718 Personal history of other venous thrombosis and embolism Office Visit 07/12/2018 Angel Noriega K43.2 Incisional 3:40p Isaac Palomares M.D. hernia without obstruction or gangrene R03.0 Elevated blood-pressure reading, w/o diagnosis of htn Office Visit 06/21/2018 [facility] Daniel Perry, S06.9x9S Unsp intracranial 2:03p Assbabs martínez MD injury w [facility] Hospital[facility] unsp duration, sequela D64.9 Anemia, unspecified I10 Essential (primary) hypertension Z86.718 Personal history of other venous thrombosis and embolism Z98.890 Other specified postprocedural states Office Visit 06/20/2018 [facility] S06.9x9S Unsp intracranial 2:02p babs Rios M.D. injury w [facility] unsp duration, sequela I10 Essential (primary) hypertension Z86.718 Personal history of other venous thrombosis and embolism Z98.890 Other specified postprocedural states Office Visit 06/19/2018 [facility] S06.9x9S Unsp intracranial 2:02p babs Rios M.D. injury w Loc of Hospitalists unsp duration, sequela I10 Essential (primary) hypertension Z98.890 Other specified postprocedural states Z86.718 Personal history of other venous thrombosis and embolism Office Visit 06/18/2018 [facility] S06.9x9S Unsp intracranial 2:02p babs Rios M.D. injury w Loc of Hospitalists unsp duration, sequela I10 Essential (primary) hypertension Z86.718 Personal history of other venous thrombosis and embolism Z98.890 Other specified postprocedural states Office Visit 06/17/2018 [facility] S06.9x9S Unsp intracranial 2:01p babs Rios M.D. injury w Loc of Hospitalists unsp duration, sequela Z98.890 Other specified postprocedural states Z86.718 Personal history of other venous thrombosis and embolism Office Visit 06/16/2018 2:00p Intens[facility] Mervin Brewer MD Z48.89 Encounter for other specified surgical aftercare R50.82 Postprocedural fever R00.0 Tachycardia, unspecified I10 Essential (primary) hypertension Office Visit 06/16/2018 [facility] S06.9x9S Unsp intracranial 2:00p Assbabs martínez PA [...] I10 Essential (primary) hypertension Office Visit 06/15/2018 [facility] S06.9x9S Unsp intracranial 1:59p Assoc,pc Iris PA injury w Loc of Hospitalists unsp duration, sequela R50.82 Postprocedural fever I10 Essential (primary) hypertension Z86.718 Personal history of other venous thrombosis and embolism Z98.890 Other specified postprocedural states Office Visit 06/14/2018 [facility] S06.9x9S Unsp intracranial 1:58p Assoc,babs Simmons PA injury w Loc of Hospitalists unsp duration, sequela R50.82 Postprocedural fever I10 Essential (primary) hypertension Z98.890 Other specified postprocedural states Z86.718 Personal history of other venous thrombosis and embolism Office Visit 06/14/2018 1:58p [facility] Mervin Brewer MD Z48.89 Encounter for other specified surgical aftercare R50.82 Postprocedural fever R00.0 Tachycardia, unspecified I10 Essential (primary) hypertension Office 06/13/2018 [facility] Unsp intracranial Visit 1:57p Assoc,babs Kumar VERIFIER OPERATOR injury w Loc of Hospitalists unsp duration, init I10 Essential (primary) hypertension Z86.19 Personal history of other infectious and parasitic diseases Z98.890 Other specified postprocedural states Office 04/26/2018 [facility] Z01.810 Encounter for Visit 10:20a Isaac Palomares preprocedural MDany cardiovascular examination K43.2 Incisional hernia without obstruction or gangrene Z87.820 Personal history of traumatic brain injury R26.89 Other abnormalities of gait and mobility Z86.718 Personal history of other venous thrombosis and embolism Z79.01 prison (current) use of anticoagulants Office Visit 04/04/2018 Surgical Andi Lu K43.2 Incisional 10:30a [facility] hernia without Devulcanizer Loader obstruction or gangrene Office Visit 03/07/2018 [facility] Blanca Noriega I82.492 Acute embolism 3:40p Tunde Palomares M.D. and thrombosis [facility] of deep vein of od l low extrem Office Visit 02/14/2018 [facility] Andi Lu K43.2 Incisional 9:00a [facility] hernia without Devulcanizer Loader obstruction or gangrene Office Visit 01/04/2018 [facility] Blanca Noriega I82.492 Acute embolism 2:40p Tunde Palomares M.D. and thrombosis [facility] of deep vein of od l low extrem Office Visit 11/01/2017 [facility] Andi Lu K43.2 Incisional 10:45a [facility] hernia without Devulcanizer Loader obstruction or gangrene Office Visit 10/25/2017 [facility]anca Noriega K62.5 Hemorrhage of 11:40a Tunde Palomares M.D. anus and rectum [facility] od Office Visit 09/09/2017 [facility] M79.671 Pain in right 10:20a Alina Sorto Ccmmarlin Palomares M.D. foot Office Visit 07/15/2017 [facility]ie[facility] S01.511D Laceration 10:40a Tunde Palomares M.D. without foreign [facility] body of lip, od subsequent encounter Office Visit 05/04/2017 [facility] Blanca Noriega M25.552 Pain in left hip 10:00a Tunde Palomares M.D. [facility] I82.401 Acute embolism and thombos unsp deep veins of r low extrem A69.20 Lyme disease, unspecified R94.5 Abnormal results of liver function studies Office Visit 04/24/2017 [facility] T14.8 Other injury of 9:44a Assoc,babs Kumar, VERIFIER OPERATOR unspecified body Hospitalists region I82.401 Acute embolism and thombos unsp deep veins of r low extrem A69.20 Lyme disease, unspecified Office Visit 04/23/2017 [facility] T14.8 Other injury of 9:43a Assoc,babs Kumar, VERIFIER OPERATOR unspecified body Hospitalists region I82.401 Acute embolism and thombos unsp deep veins of r low extrem A69.20 Lyme disease, unspecified Office Visit 04/22/2017 [facility] T14.8 Other injury of 9:43a Assoc,pc José, VERIFIER OPERATOR unspecified body Hospitalists region I82.401 Acute embolism and thombos unsp deep veins of r low extrem A69.20 Lyme disease, unspecified Office Visit 04/20/2017 [facility] Garcia E. I82.401 Acute 10:00a sIaac Palomares M.D. embolism and thombos unsp deep veins of r low extrem M25.552 Pain in left hip Office Visit 04/07/2017 [facility] Garcia Noriega L03.115 Cellulitis of 11:40a Isaac Palomares M.D. right lower limb R60.0 Localized edema Office 03/01/2017 [facility] Garcia Noriega M54.9 Dorsalgia, Visit 1:40p Isaac Palomares M.D. unspecified Office 02/04/2017 [facility] K43.2 Incisional Visit 1:15p demarcus Scott without MD obstruction or gangrene Office 11/15/2016 [facility] Tunde Noriega Z87.820 Personal history Visit 3:40p Isaac Palomares M.D. of traumatic brain injury R26.89 Other abnormalities of gait and mobility Office Visit 10/26/2016 10:00a Surgical Marlo Neely R91.8 Other nonspecific [facility] Blanca Camacho M.D. abnormal finding of lung field Office Visit 10/05/2016 9:40a [facility]Not[facility] Blanca Noriega J06.9 Acute upper Internal Wilver Palomares respiratory [facility] infection, d unspecified Office Visit 07/30/2016 4:00p Surgical Andi Haas3.2 Incisional hernia [facility] Blanca Peoples MD without obstruction or gangrene Office Visit 10/02/2015 1:20p Blanca Noriega R91.8 Other nonspecific Medicine - Sydnee Palomares M.D. abnormal finding of lung field Z87.820 Personal history of traumatic brain injury Office Visit 06/20/2015 3:00p Blanca Noriega 781.2 Gait Abnormality Alina Palomares M.D. V15.52 Personal History Of Traumatic Brain Injury 719.47 Pain Joint Ankle & Foot 553.20 Hernia Ventral Unspec Office Visit 05/21/2015 2:00p Blanca Noriega 553.20 Hernia Ventral Alina Palomares M.D. Unspec Office Visit 01/15/2015 2:40p Blanca Noriega V15.52 Personal History Alina Palomares M.D. Of Traumatic Brain Injury 781.99 Other Symptoms Involving Nervous And Musculoskeletal Systems Office Visit 10/08/2014 4:00p Blanca Noriega 924.00 Contusion Thigh Alina Palomares M.D. 285.9 Anemia Unspec V77.91 Screening For Lipoid Disorders Office Visit 05/31/2014 11:40a [facility]anca Noriega 781.2 Gait Abnormality Alina Palomares M.D. V06.1 Oaydbrjrgh-Zzcklof-Rjxqtvjw Combined (DTaP) Office Visit 09/20/2013 1:40p Blanca Noriega V70.0 Examination Alina Palomares M.D. General Medical Routine AT Health Care Facility 781.2 Gait Abnormality V77.91 Screening For Lipoid Disorders V77.1 Screening Diabetes Mellitus Office Visit 06/06/2013 [facility] Norie[facility] 813.90 FX Forearm Open 3:20p Alina Palomares M.D. Unspec Part Office Visit 12/04/2012 [facility] V58.32 Encounter For 1:40p Alina Palomarse M.D. Removal Of Sutures Office Visit 10/24/2012 [facility] 453.42 Acute Venous 9:40a Alina Palomares M.D. Embolism & Thrombosis,Deep Vessels Distal Lower Office Visit 08/03/2012 [facility] Noriega 922.31 Contusion Back 1:40p Alina Palomares M.D. Office Visit 07/31/2012 [facility] Candelario Devine, 568.81 Hemoperitoneum 10:36a babs Rios M.D. (Nontraumatic) Hospitalists 453.9 Embolism & Thrombosis Venous Unspec Site Office Visit 07/30/2012 10:35a [facility] Candelario Nilson, 453.9 Embolism & babs Rios M.D. Thrombosis Hospitalists Venous Unspec Site 568.81 Hemoperitoneum (Nontraumatic) Office Visit 07/20/2012 1:20p [facility] Garcia EKim 453.42 Acute Venous Embolism Medicine - Wilver Palomares & Thrombosis,Deep Ccmob Vessels Distal Lower Office Visit 07/07/2012 4:00p [facility] Internal Doris 719.46 Pain Joint Lower Leg Medicine - Sydnee Wilde N.P. V77.1 Screening Diabetes Mellitus V77.91 Screening For Lipoid Disorders 278.00 Obesity Unspec Office Visit 03/20/2012 3:00p [facility] Garcia Noriega V70.0 Examination Medicine - Sydnee Palomares M.D. General Medical Routine AT Health Care Facility V15.52 Personal History Of Traumatic Brain Injury Plan of Treatment 05/18/2019 - Henri Valencia, NPL03.115 Cellulitis of right lower limbNew Medication: Cephalexin 500 mg - take one tablet every 6 hours for 10 daysComments:I have ordered the xray of your foot and ankle. Start the antibiotic and continue to monitor for spreading redness, red streaking, or flu like symptoms. If these occur let us know.Follow up:prn
[2019-05-20] MEDS ORDERED: DOXYcycline CAP(*) 100 MG PO ONE (17:05)
[2019-05-20 17:50] VITALS: BP 141/76
== END 2019-05-20 17:39 | disposition home or self-care (01) ==
LOC: ED 13:40
DX: L03.115 Cellulitis of right lower limb (principal); Z88.2 Allergy status to sulfonamides; I73.9 Peripheral vascular disease, unspecified; F17.210 Nicotine dependence, cigarettes, uncomplicated; Z86.718 Personal history of other venous thrombosis and embolism; Z79.01 Long term (current) use of anticoagulants
CPT/HCPCS: 36415; 80053; 83605; 85025; 85610; 86140; 96365; 96366; 99282; A9270-GY

== ENCOUNTER 2023-09-03 04:03 | Observation (INO) ==
[2023-09-03] MEDS ORDERED: Morphine 4 MG/ML VIAL (1 ml) IM ONE (04:34)
[2023-09-03 08:46] LABS: ABS Basophils 0.1 10^3/uL (0.0-0.1); ABS Eosinophils 0.1 10^3/uL (0.0-0.5); ABS Lymphocytes 1.6 10^3/uL (1.0-4.8); ABS Monocytes 0.7 10^3/uL (0.0-1.1); ABS Neutrophils 7.2 10^3/uL (1.5-7.6); ABS Nucleated RBC 0.01 10^3/ul; Eosinophil % 0.6 %; Hematocrit 39.4 % (38-53); Hemoglobin 13.3 g/dL (13.2-16.3); Lymphocyte % 16.4 %; Mean Corpuscular Hemoglobin 28.5 pg (27-33); Mean Corpuscular Hgb Conc 33.7 g/dL (31-36); Mean Corpuscular Volume 84.5 fL (80-97); Mean Platelet Volume 8.2 fL (7.5-11.2); Nucleated Red Blood Cells % 0.1 %/100WBC (0.0-0.8); Platelet Count 273 10^3/uL (150-450); Red Blood Count 4.67 10^6/uL (4.06-5.63); Red Cell Distribution Width 15.4 % (12-17); White Blood Count 9.6 10^3/uL (3.6-10.2)
[2023-09-03 09:05] LABS: Albumin 4.3 g/dL (3.2-5.2); Albumin/Globulin Ratio 1.5 (1-3); Creatinine, Serum 0.78 mg/dL (0.67-1.17); Globulin 2.9 g/dL (2-4); Total Bilirubin 0.6 mg/dL (0.2-1.0); Total Protein 7.2 g/dL (6.4-8.9); eGFR CKD-EPI 117.1 (>60)
[2023-09-03 09:56] LABS: Activated Partial Thrombo Time 42.5 seconds (26.0-38.0); INR 1.97 (0.83-1.13)
[2023-09-03 09:57] LABS: Potassium 4.1 mmol/L (3.5-5.0)
[2023-09-03] MEDS ORDERED: Phytonadione SUBCUT/IM Adult 10 MG/ML AMP (IM or SQ not preferred route) SUBCUT ONE (10:10)
[2023-09-03] MEDS ORDERED: Ondansetron 4 mg VIAL 2 MG/ML 2 ml VIAL IV PRN ×2 (10:42→15:55)
[2023-09-03 22:22] LABS: INR 1.84 (0.83-1.13)
[2023-09-04] MEDS ORDERED: Bupivacaine 0.5% SDV PF 30ML VIAL ONE (07:30)
[2023-09-04 08:12] LABS: INR 1.51 (0.83-1.13)
[2023-09-04] MEDS ORDERED: Propofol 10 MG/ML 20 ML BTL ONE (08:32)
[2023-09-04] MEDS ORDERED: Midazolam 5 mg/5 ml VIAL 1 mg/ml 5 ml VIAL (5 mg) ONE (08:32)
[2023-09-04] MEDS ORDERED: Ondansetron 4 mg VIAL 2 MG/ML 2 ml VIAL ONE (08:32)
[2023-09-04] MEDS ORDERED: Dexamethasone IV 4 MG/ML VIAL 1 ml VIAL ONE (08:32)
[2023-09-04] MEDS ORDERED: Lidocaine 2% PF 5 ML VIAL ONE (08:32)
[2023-09-04] MEDS ORDERED: fentaNYL 100 mcg/2 ml 50 MCG/ML VIAL ONE (08:32)
[2023-09-04] MEDS ORDERED: Succinylcholine 200 mg VIAL 20 mg/ml 10 ml VIAL (200 mg) ONE (08:37)
[2023-09-04] MEDS ORDERED: ceFAZolin 2 GM in NS PREMIX 2 GM/100 ML BAG IVPB ONE (08:38)
[2023-09-04] MEDS ORDERED: Phenylephrine 40 mcg/mL 10mL (400mcg) SYRINGE ONE (09:17)
[2023-09-04] MEDS ORDERED: Acetaminophen IV 1 GM/100ML 1,000 MG/100 ML BAG IV ONE (09:40)
[2023-09-04] MEDS ORDERED: HYDROmorphone 1 MG/1 ML SYRINGE IV PRN (09:51)
[2023-09-04] MEDS ORDERED: fentaNYL 100 mcg/2 ml 50 MCG/ML VIAL IV PRN (09:51)
[2023-09-04] MEDS ORDERED: Naloxone 0.4 mg VIAL 0.4 mg/ml 1 ml VIAL IV PRN (09:51)
[2023-09-04] MEDS ORDERED: HYDROmorphone 0.5 MG/0.5 ML SYRINGE ONE (09:54)
[2023-09-04] MEDS ORDERED: Magnesium Hydroxide LIQ 30 ML UDC PO PRN (12:57)
[2023-09-04] MEDS ORDERED: Lactulose 30 ml UDC PO PRN (12:57)
[2023-09-04] MEDS ORDERED: Morphine 2 MG/ML SYRINGE IV PRN (12:57)
[2023-09-04] MEDS: Lactated Ringers 1000 ml BAG 1,000 ML IV SCH ×2 (13:17→23:27)
[2023-09-04] MEDS: ceFAZolin 1 GM ADVAN 1 GM in NS 0.9% 50 ML 50 ML IVPB SCH (16:11)
[2023-09-04] MEDS: Magnesium Hydroxide LIQ 30 ML UDC PO SCH (21:26)
[2023-09-05] MEDS: ceFAZolin 1 GM ADVAN 1 GM in NS 0.9% 50 ML 50 ML IVPB SCH ×2 (01:00→08:42)
[2023-09-05] MEDS ORDERED: Warfarin per PHARMACY **NOTE FOLLOW UP SCH (06:00)
[2023-09-05 08:34] LABS: INR 1.14 (0.83-1.13)
[2023-09-05] MEDS: Magnesium Hydroxide LIQ 30 ML UDC PO SCH ×2 (08:39→20:18)
[2023-09-05 08:41] LABS: Calcium 8.8 mg/dL (8.6-10.3); Creatinine, Serum 0.62 mg/dL (0.67-1.17); Potassium 4.4 mmol/L (3.5-5.0); eGFR CKD-EPI 125.5 (>60)
[2023-09-05] MEDS ORDERED: Enoxaparin 100 MG/ML SYR SUBCUT ONE (08:52)
[2023-09-05 09:09] LABS: ABS Eosinophils 0.1 10^3/uL (0.0-0.5); ABS Lymphocytes 1.9 10^3/uL (1.0-4.8); ABS Monocytes 1.2 10^3/uL (0.0-1.1); ABS Nucleated RBC 0.01 10^3/ul; Eosinophil % 0.8 %; Hematocrit 37.6 % (38-53); Hemoglobin 12.5 g/dL (13.2-16.3); Lymphocyte % 16.7 %; Mean Corpuscular Hemoglobin 28.3 pg (27-33); Mean Corpuscular Hgb Conc 33.1 g/dL (31-36); Mean Corpuscular Volume 85.4 fL (80-97); Mean Platelet Volume 8.2 fL (7.5-11.2); Platelet Count 229 10^3/uL (150-450); Red Blood Count 4.41 10^6/uL (4.06-5.63); Red Cell Distribution Width 15.3 % (12-17); White Blood Count 11.2 10^3/uL (3.6-10.2)
[2023-09-05] MEDS: Warfarin DAILY REMINDER **NOTE FOLLOW UP SCH (17:43)
[2023-09-06 06:29] LABS: Hemoglobin 11.3 g/dL (13.2-16.3); Mean Platelet Volume 8.2 fL (7.5-11.2); Platelet Count 225 10^3/uL (150-450)
[2023-09-06 06:34] LABS: INR 1.01 (0.83-1.13)
[2023-09-06] MEDS: Enoxaparin 100 MG/ML SYR SUBCUT SCH ×2 (09:19→23:16)
[2023-09-06] MEDS: Warfarin DAILY REMINDER **NOTE FOLLOW UP SCH (18:16)
[2023-09-07] MEDS: Enoxaparin 100 MG/ML SYR SUBCUT SCH (08:32)
[2023-09-07 11:11] LABS: Hematocrit 37.9 % (38-53); Hemoglobin 12.6 g/dL (13.2-16.3); Mean Platelet Volume 7.8 fL (7.5-11.2); Platelet Count 249 10^3/uL (150-450)
[2023-09-07 11:19] LABS: INR 1.01 (0.83-1.13)
[2023-09-07 14:30] VITALS: BP 139/92
[2023-09-07] MEDS ORDERED: Warfarin per PHARMACY **NOTE FOLLOW UP SCH (17:00)
== END 2023-09-07 14:45 ==
LOC: EDHOLD 04:03 → ED 04:03 → SUATTDRO 08:04 → SSU 14:44
PROVIDERS: ADMIT Internal Medicine; ATTEND Student in an Organized Health Care Education/Training Program